=== PATIENT | male | born 1955 | race Caucasian/White ===

== ENCOUNTER 2018-09-08 07:00 | Day surgery (SDC) | payer OTHER ==
[2018-09-08] MEDS ORDERED: Ringers Lactate 1,000 ML IV ONE (07:46)
[2018-09-08] MEDS ORDERED: BUPIVACAINE 0.5% PF 10 ML VIAL ONE (07:55)
[2018-09-08] MEDS ORDERED: PROPOFOL 200 MG/20 ML VIAL IV ONE (08:10)
[2018-09-08] MEDS ORDERED: FENTANYL CITR 100 MCG/2 ML ONE ×2 (08:11→09:11)
[2018-09-08] MEDS ORDERED: MIDAZOLAM HCL 2 MG/2 ML INJ ONE (08:11)
[2018-09-08] MEDS ORDERED: LIDOCAINE 2% MPF 5 ML VIAL ONE (08:11)
[2018-09-08] MEDS ORDERED: ONDANSETRON 4 MG/2 ML VIAL ONE (08:13)
[2018-09-08] MEDS: CEFAZOLIN 1GM (PREMIX IV) 1 GM/50 ML BAG ONE ×2 (08:31→08:41)
--- NOTE | 2018-09-08 09:11 | P.BOP ---
Preoperative diagnosis: Left forearm necrotic ulcer with cellulitis and abscess Postoperative diagnosis: same Primary procedure: Excisional debridement Left forearm necrotic ulcer 8 x 4.5 cm Estimated blood loss: <10cc Specimen: necrotic tissue Findings: as above Anesthesia: General Transferred to: Recovery Room Condition: Good
[2018-09-08] MEDS ORDERED: GLYCOPYRROLATE 0.2 MG/ML SYR ONE ×2 (09:17→09:19)
[2018-09-08] MEDS: MEPERIDINE HCL 50 MG/ML AMP ONE ×4 (09:28→09:45)
[2018-09-08] MEDS: HYDROMORPHONE HCL 1 MG/ML INJ ONE ×2 (09:48→09:58)
[2018-09-08] MEDS ORDERED: CODEINE 30MG/APAP 300MG TAB ONE (10:28)
[2018-09-08 10:31] VITALS: BP 145/81; TEMP 97; O2SAT 97
--- NOTE | 2018-09-08 23:31 | OP ---
Date of Procedure: 09/08/2018 Surgeon: Froilan Escobar MD Preoperative Diagnosis: Left forearm necrotic ulcer with cellulitis and abscess. Postoperative Diagnosis: Left forearm necrotic ulcer with cellulitis and abscess. Procedure: Excisional debridement of left forearm necrotic ulcer 8 x 4.5 cm. Estimated Blood Loss: Less than 10 cc. Specimen: Necrotic tissue. Anesthesia: General plus local. Indications: This is a case of a 63-year-old patient. He claimed that he believes he had an insect bite on left forearm, developed into cellulitis and abscess. He went to a local physician who succes sfully drained that abscess through an I and D but the area got even worse few days later after start ing to improve and developed another area nearby with the abscess too, so the skin over that area loo ks devitalized and necrotic so he came to us for debridement and drainage of an abscess. The benefit s, alternatives, and risks of debridement fully explained which include but are not limited to infect ion, bleeding, damage to adjacent structures, anesthesia complication, nonhealing wound, PA, and even . He also understands this may not relieve any symptoms, he might need more than one surgical intervention. He understood. He will require wound care. He signed a consent. Description Of Procedure: The patient was brought to the operating room, placed in supine position. Anesthesia was done without complication. A time-out was called. Left forearm was prepped and drap ed in a sterile fashion. The area of concern was marked by me and the patient previously in the hold ing room. We proceeded to take a look at the area. We opened the necrotic tissue with a knife. We noticed that the whole area is devitalized and needs to be cleaned. There is tissue there, the bacte irving has used in as a way to preserve itself in that region and leaving that tissue there will just no t improve. So, we proceeded to do debridement of the entire skin all the way down to subcutaneous ti ssue including the previous I and D area. The area was irrigated. The muscle underneath looks intac t. So, we obtained hemostasis, put local anesthetic, irrigated and then covered the area with wet-to -dry dressing. The patient tolerated the procedure well. The patient was sent to recovery in stable condition. DUKE/FRED Voice ID: [id number] Report ID: [id number]
--- NOTE | 2018-09-08 23:34 | DS ---
Date of Discharge: 09/08/2018 Diagnosis: Left forearm necrotic ulcer with cellulitis and abscess. Procedure: Excisional debridement of left forearm necrotic ulcer 8 x 4.5 cm. Disposition: Home. Wound Care: A wet-to-dry dressing with normal saline daily. Medications: Tylenol No. 3 every 4 hours p.r.n. pain. Followup: Follow up in my office in 1 week. DUKE/FRED Voice ID: [id number] Report ID: [id number]
== END 2018-09-08 11:00 | disposition home or self-care (01) ==
LOC: OR 07:00
PROVIDERS: ATTEND Surgery
PROC: 0JBH0ZZ Excision of Left Lower Arm Subcutaneous Tissue and Fascia, Open Approach (ICD-10-PCS; principal; 2018-09-08 08:30)
DX: L98.499 Non-pressure chronic ulcer of skin of other sites with unspecified severity (principal); L03.114 Cellulitis of left upper limb; L02.414 Cutaneous abscess of left upper limb
CPT/HCPCS: 11042; 11045; 88304; J0690; J1170; J2175; J2250; J2405; J2704; J3010 ×2

== ENCOUNTER 2018-12-07 20:49 | Emergency (ER) | payer OTHER ==
[2018-12-07] MEDS ORDERED: ONDANSETRON 4 MG (ODT) TAB ONE (21:20)
[2018-12-07] MEDS ORDERED: HYDROMORPHONE HCL 1 MG/ML INJ ONE (21:20)
[2018-12-07] MEDS ORDERED: KETAMINE HCL 500 MG/5 ML VIAL ONE (21:32)
[2018-12-07] MEDS ORDERED: PROPOFOL 200 MG/20 ML VIAL IV ONE (21:46)
[2018-12-07] MEDS ORDERED: NA CHLORIDE 0.9% 1,000 ML ONE (21:48)
--- NOTE | 2018-12-07 22:25 | RAD REPORT ---
EXAM DESCRIPTION: RAD - Shoulder 1 View - 12/07/2018 9:44 pm CLINICAL HISTORY: PAIN Fall, pain COMPARISON: Shoulder 1 View dated 12/07/2018 FINDINGS: Anterior subcoracoid dislocation the humeral head is noted.
--- NOTE | 2018-12-07 22:29 | ER ---
Nurse's Notes [facility] Name: Hernandez Humphrey Age: 63 yrs Sex: Male : 1955 Arrival Date: 12/07/2018 Time: 20:50 Bed 4 Private MD: Erik Lyons Diagnosis: Unspecified dislocation of left shoulder joint Presentation: 12/07 21:03 Presenting complaint: Patient states: "I tripped over some sound monitors and I think lp1 my shoulder is dislocated"; bony deformity noted to left shoulder; Denies any other injuries. Transition of care: patient was not received from another setting of care. Onset of symptoms was December 07, 2018 at 20:30. Risk Assessment: Do you want to hurt yourself or someone else? Patient reports no desire to harm self or others. Initial Sepsis Screen: Does the patient meet any 2 criteria? No. Patient's initial sepsis screen is negative. Does the patient have a suspected source of infection? No. Patient's initial sepsis screen is negative. Care prior to arrival: None. 21:03 Method Of Arrival: Wheelchair lp1 21:03 Acuity: MOJGAN 2 lp1 Triage Assessment: 21:06 General: Appears uncomfortable, Behavior is appropriate for age. Pain: Complains of lp1 pain in left shoulder. Musculoskeletal: Bony deformity noted of left shoulder. Injury Description: Deformity sustained to left shoulder. Historical: - Allergies: 21:06 No Known Allergies; lp1 - Home Meds: 21:06 None [Active]; lp1 - PMHx: 21:06 Squamous cell carcinoma; lp1 - PSHx: 21:06 Hernia repair; lp1 - Immunization history:: Adult Immunizations up to date. - Social history:: Smoking status: Patient/guardian denies using tobacco. - Ebola Screening: : No symptoms or risks identified at this time. Screenin:06 Abuse screen: Denies threats or abuse. Denies injuries from another. Nutritional lp1 screening: No deficits noted. Tuberculosis screening: No symptoms or risk factors identified. 22:12 Fall Risk IV access (20 points). tl2 Assessment: 21:07 General: Appears in no apparent distress. uncomfortable, Behavior is cooperative, tl2 appropriate for age, anxious. Pain: Complains of pain in left shoulder. Neuro: Level of Consciousness is awake, alert, obeys commands, Oriented to person, place, time, situation. Cardiovascular: Denies chest pain. Respiratory: Airway is patent Respiratory effort is even, unlabored, Respiratory pattern is regular, symmetrical. GI: No signs and/or symptoms were reported involving the gastrointestinal system. : No signs and/or symptoms were reported regarding the genitourinary system. Derm: Skin is pink, warm \\T\\ dry. Musculoskeletal: Circulation, motion, and sensation intact. Injury Description: left shoulder dislocation. 21:30 Reassessment: set up patient for conscious sedation procedure and left shoulder tl2 reduction. See conscious sedation flowsheet for vitals. 22:16 Reassessment: pt is waking up from sedation, removed NRB and placed on nc. maintaining tl2 100% O2. Pt is answering questions and following commands. 22:43 Reassessment: Patient appears in no apparent distress at this time. Patient and/or tl2 family updated on plan of care and expected duration. Pain level reassessed. Patient is alert, oriented x 3, equal unlabored respirations, skin warm/dry/pink. see conscious sedation flowsheet. Pt maintains 98% on RA able to ambulate around room. Pt stable for discharge. Pt and family verbalized understanding of discharge instructions, need for follow up, sling usage and prescription usage. Vital Signs: 21:04 BP 175 / 114; Pulse 77; Resp 18; Temp 97.7(TE); Pulse Ox 100% on R/A; Weight 88.45 kg; lp1 Height 6 ft. 1 in. (185.42 cm); Pain 10/10; 22:17 BP 168 / 92; Pulse 71; Resp 16; Pulse Ox 100% on 3 lpm NC; tl2 22:43 BP 149 / 90; Pulse 70; Resp 18; Pulse Ox 98% on R/A; Pain 1/10; tl2 21:04 Body Mass Index 25.73 (88.45 kg, 185.42 cm) lp1 ED Course: 20:50 Patient arrived in ED. do 20:50 Erik Lyons MD is Private Physician. do 21:03 Gilberto Manuel MD is Attending Physician. rn 21:04 Triage completed. lp1 21:05 Arm band placed on right wrist. lp1 21:30 Consent for conscious sedation explained by staff, explained by physician, signed by tl2 spouse. 21:30 Assist provider with reduction of left shoulder using manipulation, Set up for tl2 procedure. Performed by Scottie DAVIS Immobilized with shoulder immobilizer Patient tolerated well. 21:40 Inserted saline lock: 20 gauge in right antecubital area, using aseptic technique. tl2 placed by LARISA Doe. 21:41 Scottie Jovel PA is PHCP. jr8 21:44 Shoulder 1 View In Process Unspecified. EDMS 22:00 Patient has correct armband on for positive identification. Bed in low position. Call tl2 light in reach. Side rails up X2. Adult w/ patient. 22:14 Sue Franco RN is Primary Nurse. tl2 22:28 Shivam Silva MD is Referral Physician. jr8 22:45 IV discontinued, intact, bleeding controlled, No redness/swelling at site. Pressure tl2 dressing applied. 22:53 Shoulder (1 View) XRAY In Process Unspecified. EDMS Administered Medications: 21:20 Drug: Dilaudid 1 mg Route: IM; Site: right deltoid; tl2 21:30 Follow up: Response: No adverse reaction; Pain is unchanged, physician notified tl2 21:20 Drug: Zofran 4 mg Route: PO; tl2 22:00 Follow up: Response: No adverse reaction tl2 21:40 Drug: Ketamine 80 mg Route: IM; Site: right deltoid; tl2 21:40 Follow up: Response: No adverse reaction; No adverse reaction, pt relaxed and pain is tl2 under control 21:44 Drug: Propofol 100 mg {Note: given in 3 doses over 3 minutes, see flowsheet.} Route: tl2 IVP; Site: right antecubital; 21:47 Follow up: Response: No adverse reaction; Patient is sedated tl2 Outcome: 22:28 Discharge ordered by . jr8 22:45 Discharged to home via wheelchair, with family. tl2 22:45 Condition: stable 22:45 Discharge instructions given to patient, family, Instructed on discharge instructions, follow up and referral plans. medication usage, Demonstrated understanding of instructions, follow-up care, medications, Prescriptions given X 2. 22:47 Patient left the ED. tl2 Signatures: Dispatcher [employer] EDMS Gilberto Manuel MD MD rn Pena, Laura, RN RN lp1 Scottie Jovel PA PA jr8 Felecia Kraus Taylor, RN RN tl2
--- NOTE | 2018-12-07 22:29 | EDPHYS ---
Physician Documentation [facility] Name: Hernandez Humphrey Age: 63 yrs Sex: Male : 1955 Arrival Date: 12/07/2018 Time: 20:50 Bed 4 Private MD: Erik Lyons ED Physician Gilberto Manuel HPI: 12/07 22:17 This 63 yrs old Male presents to ER via Wheelchair with complaints of jr8 Shoulder Injury. 22:17 The patient or guardian complains of decreased range of motion, deformity, pain, jr8 tenderness. left shoulder. Context: The problem was sustained at home, resulted from a fall, The patient experiences decreased range of motion, when attempts to raise arm, The patient notes a deformity, a deltoid step-off. Onset: The symptoms/episode began/occurred acutely, today. Modifying factors: the symptoms are alleviated by nothing. The symptoms are aggravated by movement. Associated signs and symptoms: The patient has no apparent associated signs or symptoms. Severity of symptoms: At their worst the symptoms were moderate, in the emergency department the symptoms are unchanged. The patient has not experienced similar symptoms in the past. The patient has not recently seen a physician. 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 Tripped over it landing on left side. Probable dislocated left shoulder present upon arrival . Historical: - Allergies: 21:06 No Known Allergies; lp1 - Home Meds: 21:06 None [Active]; lp1 - PMHx: 21:06 Squamous cell carcinoma; lp1 - PSHx: 21:06 Hernia repair; lp1 - Immunization history:: Adult Immunizations up to date. - Social history:: Smoking status: Patient/guardian denies using tobacco. - Ebola Screening: : No symptoms or risks identified at this time. ROS: 22:17 Eyes: Negative for injury, pain, redness, and discharge, ENT: Negative for injury, jr8 pain, and discharge, Neck: Negative for injury, pain, and swelling, Cardiovascular: Negative for chest pain, palpitations, and edema, Respiratory: Negative for shortness of breath, cough, wheezing, and pleuritic chest pain, Abdomen/GI: Negative for abdominal pain, nausea, vomiting, diarrhea, and constipation, Back: Negative for injury and pain, Skin: Negative for injury, rash, and discoloration, Neuro: Negative for headache, weakness, numbness, tingling, and seizure. 22:17 MS/extremity: Positive for decreased range of motion, deformity, pain, tenderness, of the left shoulder. Exam: 22:17 Eyes: Pupils equal round and reactive to light, extra-ocular motions intact. Lids and jr8 lashes normal. Conjunctiva and sclera are non-icteric and not injected. Cornea within normal limits. Periorbital areas with no swelling, redness, or edema. ENT: Nares patent. No nasal discharge, no septal abnormalities noted. Tympanic membranes are normal and external auditory canals are clear. Oropharynx with no redness, swelling, or masses, exudates, or evidence of obstruction, uvula midline. Mucous membranes moist. Neck: Trachea midline, no thyromegaly or masses palpated, and no cervical lymphadenopathy. Supple, full range of motion without nuchal rigidity, or vertebral point tenderness. No Meningismus. Cardiovascular: Regular rate and rhythm with a normal S1 and S2. No gallops, murmurs, or rubs. Normal PMI, no JVD. No pulse deficits. Respiratory: Lungs have equal breath sounds bilaterally, clear to auscultation and percussion. No rales, rhonchi or wheezes noted. No increased work of breathing, no retractions or nasal flaring. Abdomen/GI: Soft, non-tender, with normal bowel sounds. No distension or tympany. No guarding or rebound. No evidence of tenderness throughout. Back: No spinal tenderness. No costovertebral tenderness. Full range of motion. Skin: Warm, dry with normal turgor. Normal color with no rashes, no lesions, and no evidence of cellulitis. Neuro: Awake and alert, GCS 15, oriented to person, place, time, and situation. Cranial nerves II-XII grossly intact. Motor strength 5/5 in all extremities. Sensory grossly intact. Cerebellar exam normal. Normal gait. 22:17 Musculoskeletal/extremity: Extremities: grossly normal except: noted in the left shoulder: decreased ROM, pain, tenderness, deltoid step of present with anterior fullness, Circulation is intact in all extremities. Pulses: noted to be 2+ in the right radial artery and left radial artery, Sensation intact. Vital Signs: 21:04 BP 175 / 114; Pulse 77; Resp 18; Temp 97.7(TE); Pulse Ox 100% on R/A; Weight 88.45 kg; lp1 Height 6 ft. 1 in. (185.42 cm); Pain 10/10; 22:17 BP 168 / 92; Pulse 71; Resp 16; Pulse Ox 100% on 3 lpm NC; tl2 22:43 BP 149 / 90; Pulse 70; Resp 18; Pulse Ox 98% on R/A; Pain 1/10; tl2 21:04 Body Mass Index 25.73 (88.45 kg, 185.42 cm) lp1 Procedures: 22:17 Reduction: of the left shoulder, using traction, manipulation, Immobilized with sling, jr8 Patient tolerated well. Post reduction film - reveals normal alignment. Moderate sedation: Pre-procedure assessment: the patient has been NPO 2 hour(s) prior to arrival, ASA physical classification: I - healthy, no underlying organic disease, Airway assessment: able to hyperextend neck, able to maintain airway, can open mouth without difficulty, Mallampati classification of tongue size: II - faucial pillars and soft palate can be visualized, but uvula is masked by the base of the tongue, Monitoring during procedure: equipment monitor phototypesetting, continuous pulse oximetry, nurse at bedside at all times, Medications employed: Ketamine, 80 mg(s), Propofol 100 mg total in titrated effect , Post-procedure assessment: the patient is deeply sedated, Mabry sedation score: 6 - no response, Respiratory status: even and unlabored, a reversal agent was not used. MDM: 21:03 Patient medically screened. rn 22:17 Data reviewed: vital signs, nurses notes, radiologic studies, plain films. Data jr8 interpreted: Pulse oximetry: on room air is 100 %. Interpretation: normal. Counseling: I had a detailed discussion with the patient and/or guardian regarding: the historical points, exam findings, and any diagnostic results supporting the discharge/admit diagnosis, radiology results, the need for outpatient follow up, a orthopedic surgeon, to return to the emergency department if symptoms worsen or persist or if there are any questions or concerns that arise at home. Response to treatment: the patient's symptoms have markedly improved after treatment. 22:26 ED course: Patient feeling much better. Minimal pain currently. Patient will f/u with jrMarlene Silva. Knows to come back if worse. Knows to stay in sling until he sees Dr. Silva . 12/07 21:42 Order name: Shoulder 1 View; Complete Time: 22:29 EDMS 12/07 21:49 Order name: Shoulder (1 View) XRAY fc 12/07 22:05 Order name: IV; Complete Time: 22:08 jr8 Administered Medications: 21:20 Drug: Dilaudid 1 mg Route: IM; Site: right deltoid; tl2 21:30 Follow up: Response: No adverse reaction; Pain is unchanged, physician notified tl2 21:20 Drug: Zofran 4 mg Route: PO; tl2 22:00 Follow up: Response: No adverse reaction tl2 21:40 Drug: Ketamine 80 mg Route: IM; Site: right deltoid; tl2 21:40 Follow up: Response: No adverse reaction; No adverse reaction, pt relaxed and pain is tl2 under control 21:44 Drug: Propofol 100 mg {Note: given in 3 doses over 3 minutes, see flowsheet.} Route: tl2 IVP; Site: right antecubital; 21:47 Follow up: Response: No adverse reaction; Patient is sedated tl2 Disposition: 12/08 01:40 Co-signature as Attending Physician, Gilberto Manuel MD. rn Disposition: 12/07/18 22:28 Discharged to Home. Impression: Unspecified dislocation of left shoulder joint. - Condition is Stable. - Discharge Instructions: Shoulder Dislocation. - Prescriptions for Ibuprofen 800 mg Oral Tablet - take 1 tablet by ORAL route every 12 hours As needed take with food; 20 tablet. Tylenol- Codeine #3 300-30 mg Oral Tablet - take 2 tablets by ORAL route every 6 hours As needed; 20 tablet. Zanaflex 4 mg Oral Tablet - take 1 tablet by ORAL route every 8 hours As needed; 20 tablet. - Medication Reconciliation Form, Thank You Letter, Antibiotic Education, Prescription Opioid Use form. - Follow up: Shivam Silva MD; When: 2 - 3 days; Reason: Recheck today's complaints, Continuance of care, Re-evaluation by your physician. - Problem is new. - Symptoms have improved. Signatures: Dispatcher [employer] EDMS Gilberto Manuel MD MD rn Pena, Laura RN RN lp1 Scottie Jovel PA PA jr8 Sue Franco RN RN tl2 Corrections: (The following items were deleted from the chart) 12/07 21:42 21:38 Shoulder Left 2 View+RAD.RAD.BRZ ordered. EDMS EDMS 22:47 22:28 12/07/2018 22:28 Discharged to Home. Impression: Unspecified dislocation of left tl2 shoulder joint. Condition is Stable. Forms are Medication Reconciliation Form, Thank You Letter, Antibiotic Education, Prescription Opioid Use. Follow up: Dr. Shivam Silva; When: 2 - 3 days; Reason: Recheck today's complaints, Continuance of care, Re-evaluation by your physician. Problem is new. Symptoms have improved. jr8
[2018-12-08 00:59] VITALS: TEMP 97.7
[2018-12-08 01:01] VITALS: BP 149/90; O2SAT 98
--- NOTE | 2018-12-08 08:12 | RAD REPORT ---
EXAM DESCRIPTION: RAD - Shoulder 1 View - 12/07/2018 10:53 pm CLINICAL HISTORY: post reduction Pain, swelling COMPARISON: Shoulder 1 View dated 12/07/2018 FINDINGS: The previously noted subcoracoid dislocation of the humeral head has been reduced. AC join t and glenohumeral joint arthritic changes are present. No fracture appreciated.
== END 2018-12-07 22:47 | disposition home or self-care (01) ==
LOC: ER 20:49
PROC: 0RSKXZZ Reposition Left Shoulder Joint, External Approach (ICD-10-PCS; principal; 2018-12-07)
DX: S43.005A Unspecified dislocation of left shoulder joint, initial encounter (principal); W01.0XXA Fall on same level from slipping, tripping and stumbling without subsequent striking against object, initial encounter; Y93.89 Activity, other specified; Y92.009 Unspecified place in unspecified non-institutional (private) residence as the place of occurrence of the external cause
CPT/HCPCS: 73020 ×2; 23655; J2704; J1170; J7030; 96372; 96374; 99285

== ENCOUNTER 2019-07-29 06:40 | Day surgery (SDC) | payer OTHER ==
--- OUTSIDE RECORDS SUMMARY | 2019-07-29 06:45 | XMS REPORT | Summary of Care ---
:1955 Author Name Torresmarcel Ross Zoë Address Unavailable Unavailable , Care Team Providers Name Role Phone MARKOS Jackson JULIENNE Unavailable Unavailable ONEIDA BRITTON MD, EVERTON CAMARA Unavailable Unavailable LUIGI BRITTON MD, CHARLA Swan Unavailable Unavailable Unavailable Unavailable Unavailable Functional Status Name Dates Details Functional status health issues are not documented Status: Name Dates Details Cognitive status health issues are not documented Status: Problems Name Dates Details Painful orthopaedic hardware (996.78, T84.84XA) Status: Active Medications Name Dates Details traMADol HCl - 50 MG Oral Tablet Take 1 to 2 tablets every 6 hours for pain Quantity: 30 Refills: 0 MARKOS N.P., JULIENNE Start : 14-Apr-2019 Active Allergies and Adverse Reactions Name Dates Details Allergy history not documented Status: Procedures Procedure Dates Details CT Pelvis with [id number] Date: 01-Apr-2019 [U] XRAY PELVIS 1 OR 2 [id number] Date: 06-May-2019 Immunization Name Dates Details Immunizations not documented Social History Name Dates Details Unknown if ever smoked Vital Signs Date Test Result Details No Known Vitals to report Results Date Description Value Details Results not documented Plan of Care Name Dates Details Planned Observations Planned Goals not documented Interventions Provided Labs/Procedures/Imaging[U] XRAY PELVIS 1 OR 2 [id number] [id number]; To Be Done: 06 May 2019 Instructions Name Dates Details Instructions not documented Encounters Appointment; JULIENNE BURROWS NP On: 18-Mar-2019 9:30 Encounter Diagnosis: Problem not documented Appointment; JULIENNE BURROWS NP On: 01-Apr-2019 8:30 Encounter Diagnosis: Problem not documented Appointment; JULIENNE BURROWS NP On: 08-Apr-2019 10:45 Encounter Diagnosis: Problem not documented Appointment; CHUCHO RAM M.D. On: 13-Apr-2019 10:15 Encounter Diagnosis: Problem not documented Appointment; CHARLA MEYERS M.D. On: 21-Apr-2019 8:00 Encounter Diagnosis: Problem not documented Appointment; JULIENNE BURROWS NP On: 06-May-2019 11:15 Encounter Diagnosis: Problem not documented
--- OUTSIDE RECORDS SUMMARY | 2019-07-29 06:45 | XMS REPORT ---
:1955 Author Organization [employer] Care Team Providers Name Role Phone Shivam Silva Provider Role Unavailable Allergies, Adverse Reactions, Alerts Substance Reaction Event Type N.K.D.A. Info Not Available Non Drug Allergy Problems Problem Type Condition Code Onset Dates Condition Status Assessment Joint pain of left hip on movement M25.552 Active Assessment Painful orthopaedic hardware T84.84XA Active Medications Medication Code Code Instructions Start End Status Dosage System Date Date Ibuprofen [facility] 66962893548 800 MG Oral Active TAKE 1 TABLET BY MOUTH EVERY 12 HOURS WITH FOOD NEEDED FOR PAIN DO NOT TAKE ASPIRIN Tizanidine HCl ND 42105916645 4 MG Oral Active TAKE 1 TABLET BY MOUTH EVERY 8 HOURS NEEDED FOR MUSCLE SPASMS MAY MAKE DROWSY Acetaminophen- [facility] 92358812737 300-30 MG Oral Active (Schedule Codeine #3 III Drug) TAKE 2 TABLETS BY MOUTH EVERY 6 HOURS NEEDED FOR PAIN MAY MAKE DROWSY Tramadol HCl ND 47221492277 50 MG Orally January 22, Active 1 tablet every 6 hrs 2018 as needed Results No Known Results Summary Purpose [employer] Submission
--- OUTSIDE RECORDS SUMMARY | 2019-07-29 06:45 | XMS REPORT ---
:1955 Author Organization [employer] Care Team Providers Name Role Phone Shivam Silva Provider Role Unavailable Allergies No Known Allergies Problems No Known Problems Medications No Known Medications Results No Known Results Summary Purpose [employer] Submission
--- OUTSIDE RECORDS SUMMARY | 2019-07-29 06:45 | XMS REPORT ---
:1955 [facility] Address [address] [place] [address] Dr. Collins [address] [place] [id number] Care Team Providers Name Role Phone Unavailable Unavailable Unavailable Problems This patient has no known problems. Allergies, Adverse Reactions, Alerts This patient has no known allergies or adverse reactions. Medications This patient has no known medications. Encounters Start End Encounter Admission Attending Care Care Encounter Date/Time Date/Time Type Type Clinicians Facility Department ID 2019-04-21 2019-04-21 Outpatient [facility] [id number] 10:29:00 10:29:00
[2019-07-29] MEDS ORDERED: Ringers Lactate 1,000 ML IV ONE (07:01)
[2019-07-29] MEDS ORDERED: propofoL 200 MG/20 ML VIAL IV ONE (07:17)
[2019-07-29] MEDS ORDERED: LIDOCAINE 1% MPF 5 ML VIAL ONE (07:18)
[2019-07-29 10:25] VITALS: TEMP 97.9; O2SAT 100
[2019-07-29 10:26] VITALS: BP 140/77
== END 2019-07-29 08:52 | disposition home or self-care (01) ==
LOC: OR 06:40
PROVIDERS: ATTEND Surgery
PROC: 0DBE8ZX Excision of Large Intestine, Via Natural or Artificial Opening Endoscopic, Diagnostic (ICD-10-PCS; principal; 2019-07-29 07:30)
DX: Z12.11 Encounter for screening for malignant neoplasm of colon (principal); D12.6 Benign neoplasm of colon, unspecified; K57.90 Diverticulosis of intestine, part unspecified, without perforation or abscess without bleeding; Z85.038 Personal history of other malignant neoplasm of large intestine
CPT/HCPCS: 88305; J2704; J7120

== ENCOUNTER 2020-08-31 06:43 | Day surgery (SDC) | payer OTHER ==
--- NOTE | 2020-08-25 10:30 | RAD REPORT ---
EXAM DESCRIPTION: RAD - Chest Pa And Lat (2 Views) - 08/25/2020 10:01 am CLINICAL HISTORY: PRE OP Chest pain. COMPARISON: Chest Pa And Lat (2 Views) dated 09/05/2018; Chest Pa And Lat (2 Views) dated 05/13/2018; CHEST SINGLE VIEW dated 05/26/2015 FINDINGS: The lungs are clear. The heart is normal in size. No displaced fractures. IMPRESSION: No acute or concerning finding suspected.
[2020-08-25 13:17] LABS: Absolute Lymphocytes (CBC) 1.5 K/uL (0.7-4.9); Lymphocytes % 21.7 % (15.3-44.8); RBC Red Blood Cell Count 4.44 M/uL (4.33-5.43)
--- NOTE | 2020-08-26 16:10 | EKG ---
Test Date: 2020-08-25 Test Time: 09:32:34 Telephone Interceptor Operator: HEATHER MEASUREMENT RESULTS: Intervals: Rate: 53 UT: 176 QRSD: 88 QT: 434 QTc: 407 [place]: P: 74 UT: 176 QRS: 49 T: 66 INTERPRETIVE STATEMENTS: Sinus bradycardia with occasional premature ventricular complexes and fusion complexes Otherwise normal ECG Compared to ECG 09/05/2018 13:05:39 Fusion complex(es) now present Ventricular premature complex(es) now present Electronically Signed On 08-26-20 16:09:30 SALES FORCE DEVELOPER by Jose Forrest
--- OUTSIDE RECORDS SUMMARY | 2020-08-31 06:47 | XMS REPORT | Continuity of Care Document ---
:1955 Author Organization [facility] t Address [address] [place] [address] Care Team Providers Name Role Phone MARKOS Attending Clinician Unavailable ROUTT Attending Clinician Unavailable ANDRASSY Attending Clinician Unavailable Problems Condition Condition Condition Status Onset Resolution Last Treating Co mments Source Name Details Category Date Date Treatment Clinician Date Painful Painful Problem Active [facility] orthopaedi orthopaedi it y of c hardware c hardware [place] [facility] ans Allergies, Adverse Reactions, Alerts This patient has no known allergies or adverse reactions. Medications Ordered Filled Start Stop Current Ordering Indication Dosage Frequency Signature Comments Components Source Medication Medication Date Date Medication? Clinician (SIG) Name Name traMADol traMADol Yes UJLIENNE Take 1 to [facility] HCl - 50 MG HCl - 50 MG 8-20 MARKOS 2 tablets ity of Oral Tablet Oral Tablet 00:00: N.P. every 6 [place] 00 hours for Physici pain ans Tramadol Tramadol Yes Shivam [address] [facility] HCl HCl 5-30 Silva as needed [facility] Ibuprofen Ibuprofen Yes Shivam TAKE [address] [facility] Silva TABLET BY [facility] - MOUTH Memoria EVERY 12 l HOURS WITH Outpati FOOD ent NEEDED FOR Clinics PAIN DO NOT TAKE ASPIRIN Tizanidine Tizanidine Yes Shivam TAKE [address] [facility] [address] HCl HCl Silva TABLET BY [facility] - MOUTH Memoria EVERY 8 l HOURS Outpati NEEDED FOR ent MUSCLE Clinics SPASMS MAY MAKE DROWSY Acetaminoph Acetaminoph Yes Shivam (Schedule [facility] en-Codeine en-Codeine Silva III Drug) [facility] - #3 #3 TAKE 2 Memoria TABLETS BY l MOUTH Outpati EVERY 6 ent HOURS Clinics NEEDED FOR PAIN MAY MAKE DROWSY Procedures Procedure Date / Time Performed Performing Clinician [facility] e [U] XRAY PELVIS 1 OR 2019-05-06 00:00:00 [facility] 2 [facility] [id number] Pelvis with 3D 2019-04-01 00:00:00 [facility] [id number] Physicians [U] XRAY PELVIS MIN 3 2019-03-30 00:00:00 [facility] [address] Physicians [U] XRAY PELVIS MIN 3 2019-03-18 00:00:00 [facility] [address] Physicians Encounters Start End Encounter Admission Attending Care Care Encounter Source Date/Time Date/Time Type Type Clinicians Facility Department ID 2020-07-26 2020-07-26 Outpatient [facility] [id number] [facility] 2020-05-24 2020-05-24 Outpatient [facility] [id number] [facility] 2019-09-23 2019-09-23 Outpatient [facility] [id number] Memoria 10:54:00 10:54:00 l [facility] 2019-05-06 2019-05-06 AppointSHERI [facility] [id number] Univers 11:15:00 11:15:00 t; MYESHA ROBINS [facility] NP [place] [facility] 2019-04-21 2019-04-21 Outpatient [facility] [id number] [facility] 10:29:00 10:29:00 2019-04-21 2019-04-21 AppointSHERI Sheth UTP [id number] Univers 08:00:00 08:00:00 t; CHARLA MEYERS ity of [place], M.D. [place] M.D. Physici [facility] 2019-04-13 2019-04-13 SHERI Nolen UTP [id number] Univers 10:15:00 10:15:00 t; arnel RANKIN M.D. [place] RICHARD, Physici M.D. [facility] 2019-04-08 2019-04-08 [facility] [id number] Univers 10:45:00 10:45:00 t; MYESHA ROBINS itnicholas of [place], [place] MYESHA ROBINS Physici [facility] 2019-04-01 2019-04-01 Appointmen MARKOS [facility] Orthopedics [id number] Univers 08:30:00 08:30:00 t; MYESHA ROBINS Trauma ity [facility] MYESHA ROBINS [place] [facility] 2019-03-18 2019-03-18 [facility] [id number] Univers 09:30:00 09:30:00 t; MYESHA ROBINS Trauma ity [facility] MYESHA ROBINS [place] [facility] 2019-03-09 2019-03-09 [facility] [id number] 13:01:00 13:01:00 [facility] ent [facility] 2019-02-19 2019-02-19 [facility] [id number] 08:00:00 08:00:00 t [facility] ent [facility] Results Test Description Test Time Test Comments Results Result [facility] e Comments [U] XRAY PELVIS 2019-04-01 Images Universit y of MIN 3 VWS [id number] 08:29:00 acquired, not [place] reported on Physicians this accession number. [U] XRAY PELVIS 2019-03-18 Images Universit y of MIN 3 VWS [id number] 11:33:00 acquired, not [place] reported on Physicians this accession number.
[2020-08-31] MEDS ORDERED: CEFAZOLIN/SWI 1gm 1 GM/10 ML SYR ONE (07:11)
[2020-08-31] MEDS: Ringers Lactate 1,000 ML IV ONE (07:30)
[2020-08-31] MEDS ORDERED: MIDAZOLAM HCL 2 MG/2 ML INJ ONE (07:32)
[2020-08-31] MEDS ORDERED: propofoL 200 MG/20 ML VIAL IV ONE ×2 (07:32→08:05)
[2020-08-31] MEDS ORDERED: LIDOCAINE 1% MPF 5 ML VIAL ONE (07:32)
[2020-08-31] MEDS ORDERED: FENTANYL CITR 100 MCG/2 ML ONE (07:32)
[2020-08-31] MEDS ORDERED: LIDOCAINE 1% MPF 30 ML VIAL ONE (07:36)
--- NOTE | 2020-08-31 08:15 | P.BOP ---
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
[2020-08-31] MEDS ORDERED: KETOROLAC 30 MG/ML INJ ONE (08:16)
[2020-08-31 08:54] VITALS: BP 123/70; TEMP 97; O2SAT 97
[2020-08-31] MEDS ORDERED: CODEINE 30MG/APAP 300MG TAB ONE (09:13)
--- NOTE | 2020-08-31 10:30 | OP ---
Date of Procedure: 08/31/2020 Surgeon: Froilan Escobar MD Preoperative Diagnosis: Right forearm squamous cell carcinoma. Postoperative Diagnosis: Right forearm squamous cell carcinoma. Procedure: Wide excision with frozen section of right forearm squamous cell carcinoma. Specimen: Squamous cell carcinoma with margins free of tumor per Dr. Yun. Anesthesia: MAC plus local. Indications: This is a case of a 65-year-old patient who comes to us with mass with ulceration. Bio psy shows squamous cell carcinoma, and he was scheduled for wide resection with frozen section. The benefits, alternatives, and risks fully explained, which include, but not limited to infection, bleed ing, damage to adjacent structures, anesthesia complication, recurrence, MD, and . He also unde rstands this may not relieve any symptoms. He might need more than one surgical intervention. He is not new to be seen cancer. 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 Benefits, alternative s, and risks of excision right now fully explained which include, but not limited to infection, bleed ing, damage to adjacent structures, anesthesia complication, recurrence, MD, and . The area of concern was marked by me and the patient in the holding room. The patient was brought to the operati ng room, placed supine position, anesthesia was done without complication. Right forearm was prepped and draped in sterile fashion. We proceeded to amita the area in an oval fashion, removed the mass w ith at least 1-1.5 cm margin. The mass was completely excised. a tack for orientation an d sent to the pathologist who confirmed squamous cell carcinoma, margins free of tumor. The area was irrigated. Hemostasis obtained. This was closed with a combination of 3-0 chromic and then 3-0 nyl on. Patient tolerated the procedure well. Patient was sent to recovery in stable condition. Disposition: Home. Activity: As tolerated. No heavy lifting. Followup: Follow up in my office in 1 week. Plan: Call for appointment on [phone]. Keep area dry for 48 hours, then may shower and then may us e Bactroban ointment over that area twice a day. Medications: Tylenol No. 3 q.4 hours p.r.n. pain, Bactrim DS p.o. b.i.d. HM/MODL Voice ID: [id number] Report ID: [id number]
== END 2020-08-31 09:32 | disposition home or self-care (01) ==
LOC: OR 06:43
PROVIDERS: ATTEND Surgery
PROC: 0JBG0ZZ Excision of Right Lower Arm Subcutaneous Tissue and Fascia, Open Approach (ICD-10-PCS; principal; 2020-08-31 07:30)
DX: D04.61 Carcinoma in situ of skin of right upper limb, including shoulder (principal); L57.0 Actinic keratosis; I10 Essential (primary) hypertension; Z20.828 Contact with and (suspected) exposure to other viral communicable diseases
CPT/HCPCS: 11602; 93005; 85025; 80048; 36415; 88331; 88332; 88305; 71046; U0002; J2704; J2250; J3010; J0690; J7120

== ENCOUNTER 2021-03-08 05:56 | Day surgery (SDC) | payer OTHER ==
--- NOTE | 2021-03-02 10:14 | RAD REPORT ---
EXAM DESCRIPTION: RAD - Chest Pa And Lat (2 Views) - 03/02/2021 9:31 am CLINICAL HISTORY: preop, pending shoulder surgery COMPARISON: July 2020 TECHNIQUE: Frontal and lateral views of the chest were obtained. FINDINGS: The lungs are clear. Interstitial pattern matches comparison. Heart size is normal and ce ntral vasculature is within normal limits. No pleural effusion or pneumothorax seen. No acute bony finding noted. No aortic abnormality. IMPRESSION: No acute cardiopulmonary process. No significant change from comparison study.
[2021-03-02 10:16] LABS: Absolute Lymphocytes (CBC) 1.8 K/uL (0.7-4.9); Basophils % 1.3 % (0-1.3); Hematocrit 43.7 % (39.6-49.0); Lymphocytes % 23.1 % (15.3-44.8); MPV 9.2 fL (7.6-11.3); RBC Red Blood Cell Count 4.48 M/uL (4.33-5.43)
[2021-03-02 10:19] LABS: Protime INR 0.94
[2021-03-02 10:26] LABS: Potassium 4.3 mmol/L (3.5-5.1)
--- NOTE | 2021-03-03 07:46 | EKG ---
Test Date: 2021-03-02 Test Time: 08:21:32 Combatant Swimmer: BRAULIO MEASUREMENT RESULTS: Intervals: Rate: 54 VA: 182 QRSD: 94 QT: 442 QTc: 419 [place]: P: 61 VA: 182 QRS: 17 T: 54 INTERPRETIVE STATEMENTS: Sinus bradycardia Otherwise normal ECG Compared to ECG 08/25/2020 09:32:34 Fusion complex(es) no longer present Ventricular premature complex(es) no longer present Electronically Signed On 03-03-21 07:43:02 CDT by Jose Forrest
[2021-03-08] MEDS ORDERED: Ringers Lactate 1,000 ML IV ONE ×2 (06:30→07:44)
[2021-03-08] MEDS ORDERED: CEFAZOLIN/SWI 2gm 2 GM/20 ML SYR ONE (06:31)
[2021-03-08] MEDS ORDERED: NS 0.9% VIAL 10 ML ONE ×2 (06:49→08:38)
[2021-03-08] MEDS ORDERED: LIDOCAINE 1% MPF 5 ML VIAL ONE (06:49)
[2021-03-08] MEDS ORDERED: MIDAZOLAM HCL 2 MG/2 ML INJ ONE (06:50)
[2021-03-08] MEDS ORDERED: dexAMETHasone 10 MG/ML VIAL ONE ×2 (06:50→07:33)
[2021-03-08] MEDS ORDERED: FENTANYL CITR 100 MCG/2 ML ONE (06:50)
[2021-03-08] MEDS ORDERED: ROPLVACAINE HCL 40 ML ONE (06:50)
[2021-03-08] MEDS ORDERED: EPINEPHRINE/PF 1 MG/ML AMP ONE (07:22)
[2021-03-08] MEDS ORDERED: propofoL 200 MG/20 ML VIAL IV ONE (07:33)
[2021-03-08] MEDS ORDERED: LIDOCAINE 2% MPF 5 ML VIAL ONE (07:33)
[2021-03-08] MEDS ORDERED: ONDANSETRON 4 MG/2 ML VIAL ONE (07:33)
[2021-03-08] MEDS ORDERED: ROCURONIUM 50 MG/5 ML VIAL IV ONE (07:33)
[2021-03-08] MEDS ORDERED: KETOROLAC 30 MG/ML INJ ONE (07:33)
[2021-03-08] MEDS ORDERED: EPHEDRINE SULF 50 MG/ML VIAL ONE (08:12)
[2021-03-08] MEDS ORDERED: GLYCOPYRROLATE 0.2 MG/ML SYR ONE (08:27)
[2021-03-08] MEDS ORDERED: VECURONIUM 10 MG/VIAL IV ONE (08:38)
[2021-03-08] MEDS ORDERED: NEOSTIGMINE 1 MG/ML -5 ML ONE (09:27)
--- NOTE | 2021-03-08 09:43 | P.BOP ---
Preoperative diagnosis: left shoulder rotator cuff tear, left shoulder impingement syndrome Postoperative diagnosis: same, left shoulder SLAP tear Primary procedure: left shoulder arthroscopic rotator cuff repair Secondary procedure: left shoulder arthroscopic SLAP debridement Other procedure(s): left shoulder arthroscopic subacromial decompression Flue Lining Dipper: NONE,NONE Estimated blood loss: 5 cc Specimen: none Findings: see dictation Anesthesia: General Complications: None Implants: 1- 5.5 mm Arthrex corkscrew, 1- 4.75 mm Arthrex swivelock Fluids & blood products: per anesthesia record Transferred to: Recovery Room Condition: Good
[2021-03-08] MEDS ORDERED: HYDROCODONE/APAP 7.5/325 MG TAB ONE (10:54)
--- NOTE | 2021-03-08 11:01 | RAD REPORT ---
EXAM DESCRIPTION: RAD - Shoulder 1 View - 03/08/2021 10:06 am CLINICAL HISTORY: s/p L rotator cuff repair subacromial decomp. COMPARISON: Shoulder Left Wo Cont dated 02/13/2021 FINDINGS: Single AP projection of the left shoulder obtained. There is no fracture or dislocation. D egenerative changes are seen along the superior margin of the greater tuberosity and along the unders urface of the acromion. No retained foreign body. Air in the soft tissues would be expected for the s urgical procedure performed. IMPRESSION: Left shoulder postoperative examination showing no suspicious or unexpected finding.
[2021-03-08 11:17] VITALS: BP 121/76; TEMP 97.3; O2SAT 98
--- NOTE | 2021-03-09 08:33 | OP ---
Date of Procedure: 03/08/2021 Surgeon: Shivam Silva MD Preoperative Diagnoses: 1.Left shoulder rotator cuff tear. 2.Left shoulder . Postoperative Diagnoses: 1.Left shoulder rotator cuff tear. 2.Left shoulder . 3.Left shoulder superior labrum anterior and posterior. Procedure: 1.Left shoulder arthroscopic rotator cuff repair. 2.Left shoulder arthroscopic superior labrum anterior and posterior tear debridement. 3.Left shoulder arthroscopic subacromial decompression. Anesthesia: General endotracheal. Fluids: Per Anesthesia record. Estimated Blood Loss: 5 cc. Complications: None. Implants: 1.One 5.5 mm Arthrex corkscrew. 2.One 4.75 mm Arthrex SwiveLock. Indication For Procedure: Hernandez is a 65-year-old male, presented to my clinic with signs, symptoms, a nd MRI findings consistent with a left shoulder rotator cuff tear . The patient failed con servative treatment measures including corticosteroid injections and alternatives . Due to his continued pain, I discussed with the patient at length risks and benefits associated with operat cecelia and nonoperative treatment and he expressed understanding and elected to proceed with operative t reatment. Description Of Procedure: After informed consent was obtained, the patient was identified in the pre operative holding area. The left upper extremity was marked. The patient was then taken to the PACU , where he underwent an interscalene block to his left shoulder performed by Anesthesia. He was then taken back to the , transferred to the operating table in supine fashion and placed under general endotracheal anesthesia. He was then placed in the beach chair position with his extremities well padded. The left upper extremity was then prepped and draped in usual sterile fashion. A time -out was initiated and the correct patient and procedure were confirmed and identified. The patient did receive his preoperative prophylactic antibiotics. A spinal needle was then introduced into the glenohumeral joint via the posterior portal capsule. A stab incision was made using 11 bl keegan to create a posterior portal. Arthroscope was brought in via the posterior portal position. Und er direct visualization, an anterior portal and cannula were created and placed. Diagnostic arthrosc opy was then performed. The patient was noted to have some fraying of the superior labrum consistent with a type 1 SLAP tear, which was debrided using the arthroscopic shaver. The biceps tendon and an chor were found to be in overall good shape without any significant fraying or tenosynovitis noticed. Subscapularis was also found to be intact and stable to probe. The anterior and posteri or labrum was found to be stable to probe. There were no loose bodies within the axillary pouch. Th ere was some mild degenerative changes of the glenohumeral joint. The supraspinatus was then identif ied and there was also noted to be a full-thickness tear to the anterior supraspinatus. The spinal n eedle was brought in via the lateral portal position and a lateral portal was created. The obturator was then brought into the joint, consistent with a full-thickness rotator cuff tear. The arthroscop ic shaver was then used to debride the undersurface of the anterior supraspinatus tear as well as amol ride the greater tuberosity to enhance healing of the repair. The arthroscope was then brought out o f the subacromial space. A subacromial bursectomy was performed. A stab incision and a 5 .5 mm double-loaded anchor was then placed surface. The rotator cuff tear was identified and found to be reducible. The sutures were then passed through the rotator cuff tear in an anterior to posterior fashion tied down for medial row fixation in a horizontal mattress fashion. The sutures were then all brought into 1 lateral row anchor and a 4.75 mm Arthrex SwiveLock was brou ght in for lateral row fixation and overall good reduction of the rotator cuff tear up to the greater tuberosity. Next, attention was taken to the subacromial decompression. Arthroscopic radiofrequenc y ablator was then used to debride the undersurface of the acromion. An arthroscopic lashell was then u sed to perform an acromioplasty and any spurs off the undersurface of the acromion. There was good o verall space and no obvious impingement noted with the range of motion of the shoulder. Arthroscopic instruments were then removed without complications. The wounds were then irrigated thoroughly with normal saline. Subcutaneous tissue was approximated using a 2-0 Vicryl. Skin was approximated usin g 3-0 Monocryl. Sterile dressings were applied. The patient was placed in a shoulder immobilizer an d taken to PACU in stable condition. Postoperative Plan: He will follow up in clinic in 1 week for wound check and dressing change. He w ill begin physical therapy for medium rotator cuff repair protocol at 4 weeks postop. AVA/FRED Voice ID: [id number] Report ID: [id number]
== END 2021-03-08 11:20 | disposition home or self-care (01) ==
LOC: OR 05:56
PROVIDERS: ATTEND Orthopaedic Surgery Sports Medicine
PROC: 0RHK44Z Insertion of Internal Fixation Device into Left Shoulder Joint, Percutaneous Endoscopic Approach (ICD-10-PCS; 2021-03-08)
PROC: 0RNK4ZZ Release Left Shoulder Joint, Percutaneous Endoscopic Approach (ICD-10-PCS; 2021-03-08)
PROC: 0RBK4ZZ Excision of Left Shoulder Joint, Percutaneous Endoscopic Approach (ICD-10-PCS; 2021-03-08)
PROC: 0LM24ZZ Reattachment of Left Shoulder Tendon, Percutaneous Endoscopic Approach (ICD-10-PCS; principal; 2021-03-08 07:30)
DX: S46.012A Strain of muscle(s) and tendon(s) of the rotator cuff of left shoulder, initial encounter (principal); M75.42 Impingement syndrome of left shoulder; M75.22 Bicipital tendinitis, left shoulder; M25.512 Pain in left shoulder; Z20.822 Contact with and (suspected) exposure to COVID-19
CPT/HCPCS: 93005; 85025; 80048; 36415; 85610; 85730; 71046; 73020; 29827; 29826; 29822; U0002; J2704; J0171; J2250; J3010; J1100 ×2; J2795; J2710; J0690; J7120 ×2; J2405

== ENCOUNTER 2022-04-03 16:52 | Inpatient (IN) | payer OTHER ==
--- OUTSIDE RECORDS SUMMARY | 2022-04-03 16:55 | XMS REPORT | Continuity of Care Document ---
:1955 Author Organization [facility] t Address [address] [place] [address] [address] [place] [address] Care Team Providers Name Role Phone Michael Ramirez Attending Clinician Unavailable Erik Lyons Attending Clinician Unavailable JULIENNE BURROWS NP Attending Clinician Unavailable CHARLA MEYERS M.D. Attending Clinician Unavailable CHUCHO RAM M.D. Attending Clinician Unavailable Problems Condition Condition Condition Status Onset Resolution Last Treating Co mments Source Name Details Category Date Date Treatment Clinician Date Painful Painful Problem Active [facility] orthopaedi orthopaedi Ph ysici c hardware c hardware an s Allergies, Adverse Reactions, Alerts This patient has no known allergies or adverse reactions. Medications Ordered Filled Start Stop Current Ordering Indication Dosage Frequency Signature Comments Components Source Medication Medication Date Date Medication? Clinician (SIG) Name Name traMADol traMADol Yes JULIENNE Take 1 to [facility] HCl - 50 MG HCl - 50 MG 8-20 MARKOS 2 tablets Physici Oral Tablet Oral Tablet 00:00: N.P. every 6 ans 00 hours for pain Tramadol Tramadol Yes Shivam 1 tablet [facility] HCl HCl 5-30 Silva as needed Spirit 00:00: - [facility] 00 [facility] Ibuprofen Ibuprofen Yes Shivam TAKE 1 [facility] Silva TABLET BY Spirit MOUTH - [facility] EVERY [address] [facility] HOURS WITH [facility] FOOD Medical NEEDED FOR Center PAIN DO NOT TAKE ASPIRIN Tizanidine Tizanidine Yes Shivam TAKE 1 Common HCl HCl Silva TABLET BY Spirit MOUTH - [facility]I EVERY [facility] HOURS [facility] NEEDED FOR Medical MUSCLE Center SPASMS MAY MAKE DROWSY Acetaminoph Acetaminoph Yes Shivam (Schedule Common en-Codeine en-Codeine Silva III Drug) Spirit #3 #3 TAKE 2 - CHI TABLETS BY [facility] EVERY 6 Medical HOURS Center NEEDED FOR PAIN MAY MAKE DROWSY Procedures Procedure Date / Time Performed Performing Clinician [facility] e [U] XRAY PELVIS 1 OR 2 [facility] 2019-05-06 00:00:00 [facility] [id number] [facility] Pelvis with 3D [id number] 2019-04-01 00:00:00 [facility] [U] XRAY PELVIS MIN 3 [facility] 2019-03-30 00:00:00 [facility] [id number] [U] XRAY PELVIS MIN 3 [facility] 2019-03-18 00:00:00 [facility] [id number] Encounters Start End Encounter Admission Attending Care Care Encounter Source Date/Time Date/Time Type Type Clinicians Facility Department ID 2021-11-23 Outpatient Ramirez, STLMLC STLMLC [id number] Common 14:09:01 [facility] 2021-11-22 Outpatient Ramirez, STLMLC STLMLC [id number] Common 08:44:00 [facility] 10463 [facility] 2021-09-20 Outpatient Ramirez, STLMLC STLMLC [id number] Common 13:25:23 Michael 50143 [facility] 2021-09-20 Outpatient Ramirez, STLMLC STLMLC [id number] Common 13:21:36 Michael 62603 [facility] 2021-09-20 Outpatient [place], STLMLC STLMLC [id number] Common 13:18:39 Erik [id number] [facility] 2021-09-20 Outpatient [place], STLMLC STLMLC [id number] Common 11:45:58 Erik [id number] [facility] 2022-03-07 2022-03-07 ambulatory STLMLC STLMLC [id number] Common 00:00:00 00:00:00 [facility] 2021-12-25 2021-12-25 ambulatory STLMLC STLMLC [id number] Common 00:00:00 00:00:00 [facility] 2021-11-23 2021-11-23 ambulatory STLMLC STLMLC [id number] Common 00:00:00 00:00:00 [facility] 2021-06-12 2021-06-12 Outpatient STLMLC STLMLC [id number] Common 00:00:00 00:00:00 [facility] 2021-04-27 2021-04-27 Outpatient STLMLC STLMLC [id number] Common 00:00:00 00:00:00 [facility] 2021-04-27 2021-04-27 Outpatient STLMLC STLMLC [id number] Common 00:00:00 00:00:00 [facility] 2021-03-27 2021-03-27 Outpatient STLMLC STLMLC [id number] Common 00:00:00 00:00:00 [facility] 2021-03-24 2021-03-24 Outpatient STLMLC STLMLC [id number] Common 00:00:00 00:00:00 [facility] 2021-03-13 2021-03-13 Outpatient STLMLC STLMLC [id number] Common 00:00:00 00:00:00 [facility] 2021-03-06 2021-03-06 Outpatient STLMLC STLMLC [id number] Common 00:00:00 00:00:00 [facility] 2021-02-22 2021-02-22 Outpatient STLMLC STLMLC [id number] Common 00:00:00 00:00:00 [facility] 2021-02-13 2021-02-13 Outpatient STLMLC STLMLC [id number] Common 00:00:00 00:00:00 [facility] 2021-01-31 2021-01-31 Outpatient STLMLC STLMLC [id number] Common 00:00:00 00:00:00 [facility] 2021-01-30 2021-01-30 Outpatient STLMLC STLMLC [id number] Common 00:00:00 00:00:00 [facility] 2020-07-26 2020-07-26 Outpatient STLMLC STLMLC [id number] Common 00:00:00 00:00:00 [facility] 2020-05-24 2020-05-[address] [facility] [id number] Common 00:00:00 00:00:00 [facility] 2019-09-23 2019-09-23 Outpatient [facility] 7501 [facility] 10:54:00 10:54:00 l [facility] 2019-05-06 2019-05-06 Jonnie BURROWS [facility] [place]opedics [id number] [place] 11:15:00 11:15:00 t; MYESHA ROBINS [facility] MYESHA ROBINS [facility] 2019-04-21 2019-04-21 Outpatient [facility] [id number] [facility] 10:29:00 10:29:00 2019-04-21 2019-04-21 Jonnie MEYERS [facility] [id number] 7 [place] 08:00:00 08:00:00 t; CHARLA MEYERS Phys ici [place], M.D. ans M.D. 2019-04-13 2019-04-13 [facility] [id number] 252 [place] 10:15:00 10:15:00 t; Aryan RANKIN M.D. ans RICHARD, M.D. 2019-04-08 2019-04-08 Jonnie [facility] [id number] [place] 10:45:00 10:45:00 t; MYESHA ROBINS Physic i charisse BURROWS NP 2019-04-01 2019-04-01 Jonnie BURROWS [facility] Orthopedics [id number] [place] 08:30:00 08:30:00 t; MYESHA ROBINS Trauma Physic i MARKOS [facility] - ans MYESHA ROBINS [facility] 2019-03-18 2019-03-18 Jonnie BURROWS [facility] Orthopedics [id number] [place] 09:30:00 09:30:00 t; MYESHA ROBINS Trauma Physic i MARKOS [facility] - ans MYESHA ORBINS [facility] 2019-03-09 2019-03-09 [facility] [id number] Common 13:01:00 13:01:00 t [facility] 2019-02-19 2019-02-19 [facility] [id number] Common 08:00:00 08:00:00 t [facility] Results Test Description Test Time Test Comments Results Result Sour e Comments [U] XRAY PELVIS 2019-04-01 Images [facility] Physic ians MIN 3 VWS [id number] 08:29:00 acquired, not reported on this accession number. [U] XRAY PELVIS 2019-03-18 Images [facility] Physic ians MIN 3 VWS [id number] 11:33:00 acquired, not reported on this accession number.
[2022-04-03 18:15] LABS: Absolute Lymphocytes (CBC) 2.2 K/uL (0.7-4.9); Hematocrit 45.1 % (39.6-49.0); Lymphocytes % 23.7 % (15.3-44.8); MCV 95.7 fL (80-100); MPV 8.8 fL (7.6-11.3); RBC Red Blood Cell Count 4.72 M/uL (4.33-5.43)
[2022-04-03] MEDS ORDERED: NA CHLORIDE 0.9% 1,000 ML ONE ×2 (18:15→23:10)
[2022-04-03] MEDS ORDERED: MORPHINE 4 MG/ML SYR ONE (18:15)
[2022-04-03] MEDS ORDERED: ONDANSETRON 4 MG/2 ML VIAL ONE ×2 (18:15→20:38)
[2022-04-03 18:36] LABS: Albumin 3.9 g/dL (3.4-5.0); Bilirubin Total 0.4 mg/dL (0.2-1.0); Potassium 3.9 mmol/L (3.5-5.1); Protein, Total 7.7 g/dL (6.4-8.2)
--- NOTE | 2022-04-03 18:47 | RAD REPORT ---
EXAM DESCRIPTION: RAD - Chest Single View - 04/03/2022 6:27 pm CLINICAL HISTORY: upper abdomen pain Chest pain. COMPARISON: Chest Pa And Lat (2 Views) dated 03/02/2021; Chest Pa And Lat (2 Views) dated 08/25/2020; Chest Pa And Lat (2 Views) dated 09/05/2018; Chest Pa And Lat (2 Views) dated 05/13/2018 FINDINGS: Portable technique limits examination quality. The lungs are grossly clear. The heart is normal in size. No displaced fractures. IMPRESSION: No acute intrathoracic process suspected.
[2022-04-03] MEDS ORDERED: HYDROMORPHONE HCL 1 MG/ML INJ ONE ×3 (18:49→23:10)
--- NOTE | 2022-04-03 19:30 | RAD REPORT ---
EXAM DESCRIPTION: CTAbdomen Pelvis W Contrast - 04/03/2022 7:10 pm CLINICAL HISTORY: Abdominal pain. upper abdomen pain COMPARISON: No comparisons TECHNIQUE: Biphasic CT imaging of the abdomen and pelvis was performed with 100 ml non-ionic IV cont rast. All CT scans are performed using dose optimization technique as appropriate and may include automated exposure control or mA/KV adjustment according to patient size. FINDINGS: The lung bases are clear. The liver, spleen, adrenal glands and kidneys are within normal limits. Benign bilateral renal cysts. Calcifications are present throughout the pancreas with [id number] surrounding inflammation co mpatible with chronic pancreatitis with acute pancreatitis likely superimposed. No bowel obstruction, free air, free fluid or abscess. Postsurgical clips are present in the left ing uinal region. The appendix is normal. No evidence of significant lymphadenopathy. Mild lumbar degenerative changes. IMPRESSION: Acute on chronic pancreatitis is present. No pseudocyst, abscess or pancreatic necrosis seen.
--- NOTE | 2022-04-03 19:47 | EDPHYS ---
Physician Documentation [facility] Name: Hernandez Humphrey Age: 67 yrs Sex: Male : 1955 Arrival Date: 04/03/2022 Time: 16:55 Bed 23 Private MD: Kobe Ramirez C ED Physician George Key HPI: 04/03 17:40 This 67 yrs old Male presents to ER via Ambulatory with complaints of Abdominal Pain, cp Vomiting/Diarrhea. 17:40 The patient presents with abdominal pain in the upper abdomen. Onset: The cp symptoms/episode began/occurred 1 week(s) ago. The symptoms radiate to back. Associated signs and symptoms: Pertinent positives: nausea, Pertinent negatives: chest pain, constipation, diarrhea, dysuria, fever, hematuria, shortness of breath, testicular pain, vomiting. The symptoms are described as waxing/waning. Severity of pain: in the emergency department the pain is actually worse moderately. 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 - Social history:: Smoking status: Patient/guardian denies using tobacco, the patient reports quitting approximately 30 years ago. ROS: 17:45 Constitutional: Negative for body aches, chills, fever, poor PO intake. cp 17:45 Eyes: Negative for injury, pain, redness, and discharge. cp 17:45 ENT: Negative for drainage from ear(s), ear pain, sore throat, difficulty swallowing, cp difficulty handling secretions. 17:45 Cardiovascular: Negative for chest pain, edema, palpitations. 17:45 Respiratory: Negative for cough, shortness of breath, wheezing. 17:45 Abdomen/GI: Positive for abdominal pain, nausea, Negative for vomiting, diarrhea. 17:45 Back: Positive for radiated pain. 17:45 : Negative for urinary symptoms. 17:45 Neuro: Negative for dizziness, headache, weakness. 17:45 All other systems are negative. Exam: 17:50 Constitutional: The patient appears in no acute distress, alert, awake, cp non-diaphoretic, non-toxic, well developed, well nourished, uncomfortable. 17:50 Head/Face: Normocephalic, atraumatic. cp 17:50 Eyes: Periorbital structures: appear normal, Conjunctiva: normal, no exudate, no injection, Sclera: no appreciated abnormality, Lids and lashes: appear normal, bilaterally. 17:50 ENT: External ear(s): are unremarkable, Nose: is normal, Mouth: Lips: moist, Oral mucosa: moist, Posterior pharynx: Airway: no evidence of obstruction, patent. 17:50 Neck: ROM/movement: is normal, is supple, without pain, no range of motions limitations. 17:50 Chest/axilla: Inspection: normal, Palpation: is normal, no crepitus, no tenderness. 17:50 Cardiovascular: Rate: bradycardic, Rhythm: regular, Edema: is not appreciated, JVD: is not appreciated. 17:50 Respiratory: the patient does not display signs of respiratory distress, Respirations: normal, no use of accessory muscles, no retractions, labored breathing, is not present, Breath sounds: are clear throughout, no decreased breath sounds, no stridor, no wheezing. 17:50 Abdomen/GI: Inspection: abdomen appears normal, Bowel sounds: active, all quadrants, Palpation: soft, in all quadrants, severe abdominal tenderness, in the epigastric area, voluntary guarding, is elicited in the epigastric area. 17:50 Back: CVA tenderness, is absent. 17:50 Skin: no rash present. 17:50 Neuro: Orientation: to person, place \T\ time. Mentation: is normal, Motor: moves all fours, strength is normal, Sensation: is normal. 18:13 ECG was reviewed by the Attending Physician. cp Vital Signs: 17:31 BP 179 / 93; Pulse 50; Resp 18; Temp 97.2; Pulse Ox 99% on R/A; kr3 18:43 BP 166 / 83; Pulse 50; Resp 17; Pulse Ox 100% on R/A; ll1 19:37 BP 165 / 85; Pulse 56; Resp 16; Pulse Ox 100% on R/A; eh3 MDM: 17:25 Patient medically screened. bonnie 18:00 Differential diagnosis: AAA, acute coronary syndrome, bowel obstruction, cholecystitis, cp Cholelithiasis, pancreatitis, Peptic Ulcer Disease, Perf. Duodenal Ulcer, Perf. Gastric Ulcer, Ureterolithiasis, urinary tract infection. 19:54 Data reviewed: vital signs, nurses notes, lab test result(s), EKG, radiologic studies, cp CT scan, plain films. Physician consultation: Rey Sood MD was called at 19:55, regarding consult, patient's condition, left message on voicemail. 04/03 17:35 Order name: CBC with Diff; Complete Time: 18:41 cp 04/03 18:41 Interpretation: Normal except: EOSINOPHIL % 8.2. cp 04/03 17:35 Order name: CMP; Complete Time: 18:41 cp 04/03 18:41 Interpretation: Normal except: GFR 69. cp 04/03 17:35 Order name: Lipase; Complete Time: 18:41 cp 04/03 18:41 Interpretation: Abnormal: LIP 8678. cp 04/03 17:35 Order name: Urine Microscopic Only cp 04/03 17:45 Order name: Troponin High Sensitivity; Complete Time: 18:41 04/03 20:25 Order name: Urine Dipstick-Ancillary; Complete Time: 20:45 EDAL 04/03 17:45 Order name: CT Abd/Pelvis - IV Contrast Only; Complete Time: 19:41 cp 04/03 17:45 Order name: XRAY Chest (1 view); Complete Time: 19:41 04/03 19:47 Interpretation: Report review. 04/03 20:45 Order name: SARS RAPID 04/04 02:55 Order name: CBC with Automated Diff EDAL 04/04 03:11 Order name: Comprehensive Metabolic Panel EDAL 04/04 03:11 Order name: Magnesium EDAL 04/04 03:11 Order name: Lipase EDAL 04/04 09:06 Order name: Lipid Profile EDAL 04/03 17:35 Order name: IV Saline Lock; Complete Time: 18:11 cp 04/03 17:35 Order name: Labs collected and sent; Complete Time: 18:11 cp 04/03 17:45 Order name: EKG; Complete Time: 17:46 cp 04/03 17:45 Order name: EKG - Nurse/Tech; Complete Time: 18:10 cp EC:13 Rate is 46 beats/min. Rhythm is regular. [place] interval is normal. QRS interval is normal. cp QT interval is normal. T waves are Inverted in lead aVR. Interpreted by me. Reviewed by me. Administered Medications: 16:20 Drug: NS 0.9% 1000 ml Route: IV; Rate: 1 bolus; Site: left antecubital; kr3 18:10 Drug: Zofran (Ondansetron) 4 mg Route: IVP; Site: left antecubital; kr3 19:08 Follow up: Response: No adverse reaction kr3 18:15 Drug: morphine 4 mg Route: IVP; Infused Over: 4 mins; Site: left antecubital; kr3 19:07 Follow up: Response: No adverse reaction; RASS: Alert and Calm (0) kr3 18:41 CANCELLED (Physician Discretion): Dilaudid (HYDROmorphone) 1 mg IVP once cp 18:48 Drug: HYDROmorphone 1 mg Route: IVP; Site: left antecubital; kr3 20:37 Drug: HYDROmorphone 1 mg Route: IVP; Site: right antecubital; eh3 20:37 Drug: Zofran (Ondansetron) 4 mg Route: IVP; Site: right antecubital; eh3 Disposition Summary: 04/03/22 19:46 Hospitalization Ordered Hospitalization Status: Inpatient Admission cp Provider: Kobe Ramirez cp Condition: Stable cp Problem: new cp Symptoms: have improved cp Bed/Room Type: Standard cp Location: Telemetry/MedSurg (Inpatient)(04/04/22 11:24) iw Room Assignment: 229(04/04/22 11:24) iw Diagnosis - Acute pancreatitis with uninfected necrosis, unspecified cp Forms: - Medication Reconciliation Form cp - SBAR form cp Addendum: 04/07/2022 18:45 Co-signature as Attending Physician, George Key MD I agree with the assessment and c white plan of care. Signatures: Dispatcher [employer] Yadi Dupree, BETH-C MECHANICAL TECHNICIAN-Kelb George Key MD MD cha Williams, Irene, RN RN George Gamboa PA PA cp Garcia, Cindy, RN RN Erma Allen RN RN 3 Tamy Beth RN RN kr3 Corrections: (The following items were deleted from the chart) 04/03 18:41 18:40 Dilaudid (HYDROmorphone) 1 mg IVP once ordered. cp cp 20:59 19:46 Telemetry/MedSurg (observation) cp cg 19:46 cp cg 04/04 11:24 04/03 20:59 BR ER [facility] iw 04/04 11:04/03 [facility] [address] [facility]
--- NOTE | 2022-04-03 19:47 | ER ---
Nurse's Notes [facility] Name: Hernandez Humphrey Age: 67 yrs Sex: Male : 1955 Arrival Date: 04/03/2022 Time: 16:55 Bed 23 Private MD: Kobe Ramirez C Diagnosis: Acute pancreatitis with uninfected necrosis, unspecified Presentation: 04/03 17:31 Chief complaint: Patient states: abd pain x 2 weeks becoming unbearable today, nausea kr3 started today as well. Coronavirus screen: Vaccine status: Patient reports being unvaccinated. Client denies travel out of the [place] in the last 14 days. Ebola Screen: Patient denies travel to an Ebola-affected area in the 21 days before illness onset. Initial Sepsis Screen: Does the patient meet any 2 criteria? No. Patient's initial sepsis screen is negative. Does the patient have a suspected source of infection? Yes: Acute abdominal pain. Risk Assessment: Do you want to hurt yourself or someone else? Patient reports no desire to harm self or others. Onset of symptoms was March 20, 2022. 17:31 Method Of Arrival: Ambulatory kr3 17:31 Acuity: MOJGAN 3 kr3 Triage Assessment: 17:39 General: Appears distressed, uncomfortable, Behavior is calm, cooperative, appropriate kr3 for age. Pain: Complains of pain in epigastric area, right upper quadrant and left upper quadrant Pain currently is 7 out of 10 on a pain scale. GI: Reports upper abdominal pain, diarrhea. 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 - Social history:: Smoking status: Patient/guardian denies using tobacco, the patient reports quitting approximately 30 years ago. Screenin:44 Abuse screen: Denies threats or abuse. Nutritional screening: No deficits noted. ll1 Tuberculosis screening: No symptoms or risk factors identified. Fall Risk IV access (20 points). Total Alves Fall Scale indicates No Risk (0-24 pts). Assessment: 18:43 Reassessment: No changes from previously documented assessment. Patient and/or family ll1 updated on plan of care and expected duration. Pain level reassessed. Patient is alert, oriented x 3, equal unlabored respirations, skin warm/dry/pink. 22:46 GI: eh3 04/04 10:34 GI: Abd is soft. ap3 Vital Signs: 04/03 17:31 BP 179 / 93; Pulse 50; Resp 18; Temp 97.2; Pulse Ox 99% on R/A; kr3 18:43 BP 166 / 83; Pulse 50; Resp 17; Pulse Ox 100% on R/A; ll1 19:37 BP 165 / 85; Pulse 56; Resp 16; Pulse Ox 100% on R/A; eh3 ED Course: 16:55 Patient arrived in ED. mr 16:56 Kobe Ramirez MD is Private Physician. mr 17:06 [facility]ulton [facility]. cp 17:06 George Key MD is Attending Physician. cp 17:23 Tamy Beth, RN is Primary Nurse. kr3 17:26 Arm band placed on Patient placed in an exam room, on a stretcher. ll1 17:37 Triage completed. kr3 17:50 Missed attempt(s): 22 gauge in right antecubital area. kr3 17:55 Inserted saline lock: 22 gauge in left antecubital area, using aseptic technique. Blood kr3 collected. 18:28 XRAY Chest (1 view) In Process Unspecified. EDMS 18:44 Patient has correct armband on for positive identification. Bed in low position. Call ll1 light in reach. Side rails up X 1. Pulse ox on. NIBP on. 19:12 CT Abd/Pelvis - IV Contrast Only In Process Unspecified. EDMS 19:39 Primary Nurse role handed off by Tamy Beth, RN eh3 19:39 Erma Allen, LARISA is Primary Nurse. eh3 19:45 Kobe Ramirez MD is Hospitalizing Provider. cp 21:29 SARS RAPID Sent. eh3 04/04 10:34 No provider procedures requiring assistance completed. Patient admitted, IV remains in ap3 place. Administered Medications: 04/03 16:20 Drug: NS 0.9% 1000 ml Route: IV; Rate: 1 bolus; Site: left antecubital; kr3 18:10 Drug: Zofran (Ondansetron) 4 mg Route: IVP; Site: left antecubital; kr3 19:08 Follow up: Response: No adverse reaction kr3 18:15 Drug: morphine 4 mg Route: IVP; Infused Over: 4 mins; Site: left antecubital; kr3 19:07 Follow up: Response: No adverse reaction; RASS: Alert and Calm (0) kr3 18:41 CANCELLED (Physician Discretion): Dilaudid (HYDROmorphone) 1 mg IVP once cp 18:48 Drug: HYDROmorphone 1 mg Route: IVP; Site: left antecubital; kr3 20:37 Drug: HYDROmorphone 1 mg Route: IVP; Site: right antecubital; eh3 20:37 Drug: Zofran (Ondansetron) 4 mg Route: IVP; Site: right antecubital; eh3 Medication: 18:44 VIS not applicable for this client. ll1 Outcome: 19:46 Decision to Hospitalize by Provider. cp 04/04 10:34 Admitted to ER Hold. Please see [facility] for further documentation. ap3 Condition: good Instructed on the need for admit. 12:27 Patient left the ED. tw2 Signatures: Dispatcher [employer] EDMS Rachael Harris mr George Fulton, RYAN PA cp Mimi Cook RN RN tw2 Sharon Beltre RN RN ap3 Blake Blanton RN RN ll1 Erma Allen, LARISA RN eh3 Tamy Beth, LARISA RN kr3 Corrections: (The following items were deleted from the chart) 04/03 18:27 18:27 Missed attempt(s): 22 gauge in right antecubital area. kr3 kr3 18:28 18:01 Missed attempt(s): 22 gauge in right antecubital area. kr3 kr3 18:28 18:04 Inserted saline lock: 22 gauge in left antecubital area, using aseptic technique. kr3 Blood collected. kr3
[2022-04-03 20:24] LABS: Urine Blood Trace-intact (Negative); Urine Glucose Negative (Negative); Urine Protein Negative (Negative); Urine pH 5.5 (5.0-7.0)
[2022-04-03 21:51] LABS: SARS-CoV-2 Antigen Rapid Res Negative (Negative)
[2022-04-03] MEDS: NA CHLORIDE 0.9% 1,000 ML IV SCH (22:58)
[2022-04-03] MEDS: HYDROMORPHONE HCL 1 MG/ML INJ IV PRN (23:17)
[2022-04-04] MEDS ORDERED: HYDROMORPHONE HCL 1 MG/ML INJ ONE ×3 (02:13→10:55)
[2022-04-04] MEDS: HYDROMORPHONE HCL 1 MG/ML INJ IV PRN ×5 (02:19→18:31)
[2022-04-04 02:50] LABS: Absolute Lymphocytes (CBC) 1.7 K/uL (0.7-4.9); Hematocrit 40.1 % (39.6-49.0); Lymphocytes % 18.8 % (15.3-44.8); MPV 8.6 fL (7.6-11.3); RBC Red Blood Cell Count 4.22 M/uL (4.33-5.43)
[2022-04-04 03:10] LABS: Albumin 3.2 g/dL (3.4-5.0); Bilirubin Total 0.5 mg/dL (0.2-1.0); Magnesium 1.9 mg/dL (1.8-2.4); Potassium 3.6 mmol/L (3.5-5.1); Protein, Total 6.5 g/dL (6.4-8.2)
[2022-04-04] MEDS ORDERED: NA CHLORIDE 0.9% 1,000 ML ONE (06:26)
[2022-04-04] MEDS: ONDANSETRON 4 MG/2 ML VIAL IV PRN ×4 (06:43→18:31)
[2022-04-04] MEDS ORDERED: ONDANSETRON 4 MG/2 ML VIAL ONE ×2 (06:45→10:55)
[2022-04-04] MEDS ORDERED: clonazePAM 1 MG TAB PO PRN (07:16)
[2022-04-04] MEDS ORDERED: ENOXAPARIN 40 MG/0.4 ML SQ ONE (07:47)
--- NOTE | 2022-04-04 07:54 | EKG ---
Test Date: 2022-04-03 Test Time: 18:11:49 Glass Cylinder Flanger: TRACY MEASUREMENT RESULTS: Intervals: Rate: 46 NC: 180 QRSD: 94 QT: 454 QTc: 397 Tucker: P: 64 NC: 180 QRS: 33 T: 60 INTERPRETIVE STATEMENTS: Marked sinus bradycardia Abnormal ECG Compared to ECG 03/02/2021 08:21:32 No significant changes Electronically Signed On 04-04-22 07:52:31 CDT by Jose Forrest
[2022-04-04] MEDS ORDERED: PNEUMOCOCCAL VACCINE 0.5 ML IMVAC ONE (08:00)
[2022-04-04] MEDS: NA CHLORIDE 0.9% 1,000 ML IV SCH ×2 (08:14→18:28)
[2022-04-04] MEDS: ENOXAPARIN 40 MG/0.4 ML SQ SCH (08:15)
--- NOTE | 2022-04-04 10:49 | HP ---
Date of Admission: 04/03/2022 Chief Complaint: Abdominal pain and nausea. History Of Present Illness: This is a 67 year-old male patient, who came into emergency room with almost 2 weeks' history of increasing abdominal pain in upper mid abdomen associated with nausea, but no fever, no vomiting. With worsening symptoms, he came into emergency room. After he was evaluated in the ER, he was diagnosed as having acute on chronic pancreatitis on basis of his CAT scan and blood tests, and he was admitted to the hospital. I saw him in emergency room. His was present with him at bedside. Allergies: NO KNOWN ALLERGIES. Medications: According to office list; he is taking atorvastatin 20 mg daily at bedtime, clonazepam 1 mg 2 times a day as needed for anxiety, escitalopram 20 mg 2 times a day, propranolol 10 mg 2 times a day, trazodone 50 mg at bedtime. Review of Systems: GI: As mentioned above. All other systems reviewed and negative. Past Medical History: Significant for squamous cell carcinoma of mandible diagnosed and treated in 1990, hyperlipidemia, palpitation, diverticulosis, kidney stone, renal cyst, anxiety, insomnia, benign prostatic hypertrophy. Past Surgical History: Significant for hernia repair which was umbilical and inguinal hernia in 2017, shoulder surgery, surgery for fracture of ilium, and surgery for removal of squamous cell carcinoma from mandible 1990. Family History: Father , had cerebral aneurysm. Mother , had leukemia. Social History: Negative for smoking and upon further questioning, the patient admits that he drinks about 3 beers and 2 hard drinks hard liquors a day. Physical Examination: Vital Signs: Height 6 feet, 1 inch, weight 195 pounds, temperature 97.2, pulse 50, respiratory rate 18, blood pressure 179/93, oxygen saturation 99. General: Awake, alert, oriented, not in distress. HEENT: Head atraumatic, normocephalic. Conjunctivae nonerythematous. Sclerae white. Mouth, no thrush or edema noted. Ears/Nose, no mass, lesion, discharge noted. Neck: Supple. No JVD, lymph nodes, bruit, thyromegaly noted. Lungs: Bilateral good equal air entry. Clear to auscultation. No rhonchi. No rales. Heart: Normal heart sounds, no murmur or gallop. Abdomen: Soft. Bowel sounds normal. No guarding, rigidity, distention. The patient does have tenderness in mid upper abdomen in epigastric and periumbilical region. There is no rebound tenderness. Extremities: No leg edema. No calf tenderness. Skin: No rash, ulcer, cellulitis. Lymphatics: No lymph node enlargement in neck, supraclavicular, infraclavicular region. Neuro: No focal neurological deficit. Chest: Unremarkable. External Genitalia: Deferred. Rectal: Deferred. Laboratory Data: White count 9.1, hemoglobin 15.6, platelets 199. Sodium 140, potassium 3.9, chloride 104, bicarb 30, BUN 14, creatinine 1.15, glucose 97. Liver function tests; AST normal at 16, ALT normal at 23, alkaline phosphatase normal at 59, total bilirubin normal at 0.4, lipase elevated at 8678, troponin 6.5. CAT scan of abdomen and pelvis with contrast shows acute on chronic pancreatitis changes. No pseudocyst, abscess or pancreatic necrosis. Chest x- ray, no acute intrathoracic changes. Impression: 1. Acute on chronic pancreatitis, alcohol related. 2. Hyperlipidemia. 3. Anxiety. 4. Insomnia. 5. Diverticulosis. 6. Benign prostatic hypertrophy. Plan: We will go ahead and admit the patient to hospital for further evaluation and management of this problem. The patient is appropriate for inpatient and is expected to spend 2 midnights in hospital. Home medications will be continued per order. We will keep him n.p.o. at this point and give him IV fluid, pain medication, nausea medication as per order. Consult admitted attorneys, Dr. Sood. We will repeat lipase level tomorrow morning, get fasting lipid profile done. DVT prophylaxis will be given per order. The patient was made aware of different possible causes of pancreatitis and in his case likely reason is his alcohol consumption and I have discussed these details with him and informed him that he should not have any alcohol at all in the future in order for him to avoid any recurrences of pancreatitis problem. Complications related to pancreatitis discussed with him as well. I will see him in the morning for followup. SAL/MODL Voice ID: [id number] MTDD
[2022-04-05] MEDS: HYDROMORPHONE HCL 1 MG/ML INJ IV PRN ×9 (00:54→22:38)
[2022-04-05] MEDS: ONDANSETRON 4 MG/2 ML VIAL IV PRN ×2 (00:55→04:35)
[2022-04-05] MEDS: NA CHLORIDE 0.9% 1,000 ML IV SCH ×2 (04:35→15:03)
[2022-04-05 07:12] LABS: Albumin 3.4 g/dL (3.4-5.0); Bilirubin Total 0.8 mg/dL (0.2-1.0); Magnesium 1.9 mg/dL (1.8-2.4); Potassium 3.7 mmol/L (3.5-5.1); Protein, Total 7.2 g/dL (6.4-8.2)
[2022-04-05] MEDS: ENOXAPARIN 40 MG/0.4 ML SQ SCH (09:43)
--- NOTE | 2022-04-05 10:19 | PN ---
Date of Progress Note: 04/04/2022 Subjective: The patient was seen this morning for followup. No new complaints or problems reported by him. His abdominal pain is more or less continuous, but pain medication seems to be helping and liliana krueger feels better when he sleeps on the right side. No nausea, vomiting overnight. Objective: Vital Signs: Reviewed. Hemodynamically, he is stable. HEENT: Unremarkable. Lungs: Clear to auscultation. Heart: Sounds normal. Abdomen: Soft. Bowel sounds normal. No guarding, rigidity, distention. Presence of tenderness in periumbilical and epigastric region, unchanged from yesterday. No rebound tenderness. Extremities: No leg edema. Laboratory Data: White count 8.8, hemoglobin 14.1, platelets 178. Sodium 141, potassium 3.6, chlori de 107, bicarb 30, BUN 11, creatinine 0.96, glucose 86. Liver function tests unremarkable. Lipase 3 596 and serum triglyceride 1.3. Impression: Acute on chronic pancreatitis, due to alcohol use. Plan: We will go ahead and continue current medications for pain and nausea medicine as needed. Con tinue IV fluid per order. We will continue to keep him n.p.o. today. Continue DVT prophylaxis with Lovenox. Ambulation was encouraged and we will continue to follow up with pipe changer, Dr. Ez orellana. We will repeat blood work tomorrow. Depending on his condition tomorrow, we will decide about starting him on clear liquid diet tomorrow. SAL/MODL Voice ID: [id number] Report ID: [id number]
[2022-04-05] MEDS: PROPRANOLOL HCL 10 MG TAB PO SCH (21:00)
[2022-04-05] MEDS ORDERED: TRAZODONE 50 MG TABLET PO SCH (21:00)
[2022-04-05] MEDS ORDERED: ESCITALOPRAM 20 MG TAB PO SCH (21:00)
--- NOTE | 2022-04-06 01:11 | PN ---
Date of Progress Note: 04/05/2022 Subjective: The patient was seen this morning for followup. He still continues to have abdominal pa in requiring narcotic pain medication every 2 hours. No vomiting. Objective: VITAL SIGNS: Reviewed. HEENT: Unremarkable. LUNGS: Bilateral good equal air entry. Clear to auscultation. HEART: Heart sounds normal. ABDOMEN: Soft, bowel sounds normal. No guarding, rigidity. No distention. Presence of tenderness in epigastric and periumbilical region, unchanged from yesterday. No rebound tenderness. EXTREMITIES: No leg edema. Laboratory Data: The patient's lab is more or less significantly better today compared to yesterday and day before yesterday. Impression: Acute on chronic pancreatitis. Plan: We will go ahead and continue IV fluid, but reduce IV fluid rate. Start the patient on clear liquid diet and Dr. Sood will be evaluating from GI Service today. We will repeat blood work tomor row. I will see him tomorrow for followup. Ambulation was encouraged. We will continue current DVT prophylaxis. SAL/MODL Voice ID: [id number] Report ID: [id number]
[2022-04-06] MEDS: HYDROMORPHONE HCL 1 MG/ML INJ IV PRN ×3 (01:44→06:35)
[2022-04-06 02:21] VITALS: BMI 25.7
[2022-04-06] MEDS: NA CHLORIDE 0.9% 1,000 ML IV SCH (03:47)
[2022-04-06 04:33] LABS: Absolute Lymphocytes (CBC) 1.1 K/uL (0.7-4.9); Hematocrit 45.8 % (39.6-49.0); MCV 95.1 fL (80-100); RBC Red Blood Cell Count 4.81 M/uL (4.33-5.43)
[2022-04-06 04:39] LABS: Albumin 3.7 g/dL (3.4-5.0); Bilirubin Total 1.1 mg/dL (0.2-1.0); Magnesium 1.9 mg/dL (1.8-2.4); Potassium 3.2 mmol/L (3.5-5.1); Protein, Total 7.9 g/dL (6.4-8.2)
[2022-04-06] MEDS ORDERED: HYDROCODONE/APAP 5/325 MG TAB PO PRN (08:40)
[2022-04-06] MEDS ORDERED: ACETAMINOPHEN 500 MG TAB PO ONE (08:40)
[2022-04-06] MEDS ORDERED: IBUPROFEN 400 MG TAB PO ONE (08:40)
--- NOTE | 2022-04-06 08:46 | RAD REPORT ---
EXAM DESCRIPTION: RAD - Chest Pa And Lat (2 Views) - 04/06/2022 7:59 am CLINICAL HISTORY: pancreatitis, leukocytosis Chest pain. COMPARISON: Chest Single View dated 04/03/2022; Chest Pa And Lat (2 Views) dated 03/02/2021; Chest Pa An d Lat (2 Views) dated 08/25/2020; Chest Pa And Lat (2 Views) dated 09/05/2018 FINDINGS: The lungs are mildly emphysematous but clear. The heart is normal in size. No displaced fr actures. IMPRESSION: Mild COPD.
[2022-04-06] MEDS: ENOXAPARIN 40 MG/0.4 ML SQ SCH ×2 (09:00→10:04)
[2022-04-06] MEDS: PROPRANOLOL HCL 10 MG TAB PO SCH (09:03)
[2022-04-06 10:59] VITALS: O2SAT 96
[2022-04-06 11:58] LABS: Urine Blood 1+ (Negative); Urine Clarity Clear (Clear); Urine Color Yellow (Yellow); Urine Glucose Negative (Negative); Urine Protein Negative (Negative); Urine Urobilinogen 0.2 mg/dL (0.2-1.0)
[2022-04-06 12:17] LABS: Urine Mucus 2+ /HPF (None Seen)
[2022-04-06 12:47] LABS: Urine Bilirubin Negative (Negative)
--- NOTE | 2022-04-06 12:56 | RAD REPORT ---
EXAM DESCRIPTION: CT - Abdomen Pelvis Wo Contrast - 04/06/2022 12:41 pm CLINICAL HISTORY: Elevated WBC and Pancreatitis COMPARISON: Abdomen Pelvis W Contrast dated 04/03/2022 TECHNIQUE: Axial [address] imaging of the abdomen and pelvis was performed without IV contrast. No IV contrast was given because of allergy, abnormal renal function, patient refusal or physician re quest. Oral contrast was given. All CT scans are performed using dose optimization technique as appropriate and may include automated exposure control or mA/KV adjustment according to patient size. FINDINGS: No suspicious findings in the lung bases. The liver and spleen show no new findings since April 03 imaging. No biliary tree dilatation. Gallbla dder is mostly contracted. No biliary tree dilatation. Peripancreatic edema and stranding around the head and uncinate process again identified. Calcificat ions in the body and tail of the pancreas are again noted. No pancreatic solid or cystic mass has dev eloped. The peripancreatic edema and stranding pattern has not change from April 03. No hydronephrosis or suspicious renal mass. Multiple bilateral renal cysts again noted. No significan t adrenal finding. Isodense renal masses and pyelonephritis cannot be excluded in the absence of IV c ontrast. The urinary bladder is without significant finding. No dilated bowel loops or bowel wall thickening. Appendix is normal. No acute bowel process has devel oped. No free air, free fluid or pneumatosis. No mass or bulky lymphadenopathy. Left inguinal hernia repair changes are again noted. Air in the subcutaneous fatty tissues of the abdomen is presumed to b e from medication injection. Disc and bone degenerative changes are present. No acute bone process identifiable. IMPRESSION: Mild acute pancreatitis superimposed on chronic pancreatitis changes. Pancreatitis findings are stable from April 03. Full assessment is limited is the absence of IV contrast.
[2022-04-06 13:02] VITALS: BP 137/74; TEMP 98.8
--- NOTE | 2022-04-08 10:47 | DS ---
Date of Discharge: 04/06/2022 Disposition: Discharged to go home. Physical Examination: HEENT: Unremarkable. Lungs: Clear to auscultation. Heart: Sounds normal. Abdomen: Soft. Bowel sounds normal. No guarding, rigidity, distention. Mild tenderness in epigast ravi and periumbilical region, which is better compared to last couple of days. No rebound tenderness . Bowel sounds normoactive. No distention. Extremities: No leg edema. Laboratory Data: Upon admission; white count 9.1, hemoglobin 15.6, platelets 199. Today; white coun t 13.8, hemoglobin 16.1, platelets 202. Upon admission; sodium 140, potassium 3.9, chloride 104, bic arb 30, BUN 14, creatinine 1.15, glucose 97. Liver function tests unremarkable. Lipase 8678, which was the highest lipase for this admission and we followed lipase on a daily basis and last lipase tod ay was normal at 212. Today; sodium 135, potassium 3.2, chloride 98, bicarb 28, BUN 5, creatinine 0. 77, glucose 109. Urinalysis unremarkable. Chest x-ray done today shows changes of COPD, but no pneu monia. CAT scan of abdomen upon admission and today shows evidence of acute on chronic pancreatitis. No evidence of any fluid collection around the pancreas. No complications related to pancreatitis noted. Discharge Medications And Instructions: 1.Continue all prior home medications. 2.Follow up at my office next week. Call office for appointment. 3.Take Tylenol 500 mg 1 tablet and Motrin 200 mg 2 tablets by mouth 4 times a day as needed for pain . 4.Take hydrocodone 5 mg 3 times a day as needed for more severe pain. 5.Do not drink alcohol. 6.Prescription for 15 tablets of hydrocodone was sent to the patient's pharmacy. Hospital Course: A 67-year-old very pleasant male patient, admitted to the hospital with abdominal p ain and nausea. Please see dictated H and P for more information. The patient has longstanding hist ory of alcohol use and says that about couple of months ago he had diarrhea problem. His stool test was negative, but at that time he quit using alcohol for a while and diarrhea got better and started using alcohol again and now he came in with 2-3 weeks history of increasing abdominal pain and nausea . After he came into ER, he was evaluated and admitted to the hospital with acute on chronic pancrea titis as noted per CAT scan finding. The patient was kept n.p.o. initially and IV fluid and IV pain medication were started. Nausea medicine was given. DVT prophylaxis was given with Lovenox. Once h is lipase started to come down, we started him on clear liquid diet and slowly advanced his diet. [place] stroenterologist reporting consultant was Dr. Sood who was requested to see the patient for consultation and it was requested at the time of admission, but unfortunately we believe that he has not had a chance to evaluate the patient. The patient's condition meanwhile has improved and as he tolerated diet very w ell, we advanced his diet and medically he was stable. His white count had gone up slightly today on day of discharge, but I would have to believe that this is stress-induced. There is no evidence of any definite infection anywhere that we can find and the patient is medically stable for discharge. I did college and career counselor the patient in detail about importance of not to drink any alcohol at all in the future and he understands and agrees with that recommendation. Final Diagnoses: 1.Acute on chronic pancreatitis, alcohol related. 2.Hyperlipidemia. 3.Anxiety. 4.Insomnia. 5.Diverticulosis. 6.Benign prostatic hypertrophy. SAL/MODL Voice ID: [id number] Report ID: [id number]
== END 2022-04-06 16:15 | disposition home or self-care (01) | DRG 440 ==
LOC: ER 16:52 → ERHOLD 20:34 → 2ND 04-04 12:08
PROVIDERS: ADMIT Internal Medicine; ATTEND Internal Medicine
DX: K85.20 Alcohol induced acute pancreatitis without necrosis or infection (principal); K86.0 Alcohol-induced chronic pancreatitis; E78.5 Hyperlipidemia, unspecified; F41.9 Anxiety disorder, unspecified; G47.00 Insomnia, unspecified; K57.90 Diverticulosis of intestine, part unspecified, without perforation or abscess without bleeding; N40.0 Benign prostatic hyperplasia without lower urinary tract symptoms; Z20.822 Contact with and (suspected) exposure to COVID-19
CPT/HCPCS: 36415; 71045; 71046; 74176; 74177; 80053; 80061; 81001; 81003; 83690; 83735; 84484; 85025; 87811; 93005; 99285; J1170; J1650; J2405; J7030; Q9967

== ENCOUNTER 2022-06-12 08:32 | Day surgery (SDC) | payer OTHER ==
[2022-06-08 13:40] LABS: SARS-CoV-2 Antigen Rapid Res Negative (Negative)
[2022-06-08 13:43] LABS: Absolute Lymphocytes (CBC) 1.7 K/uL (0.7-4.9); Hematocrit 42.4 % (39.6-49.0); Lymphocytes % 21.2 % (15.3-44.8); MCV 96.5 fL (80-100); MPV 8.2 fL (7.6-11.3); RBC Red Blood Cell Count 4.39 M/uL (4.33-5.43)
[2022-06-08 13:55] LABS: Urine Bilirubin NEGATIVE (Negative); Urine Blood Trace (Negative); Urine Clarity Clear (Clear); Urine Color Light-Yellow (Yellow); Urine Glucose NEGATIVE (Negative); Urine Mucus Slight /HPF (None Seen); Urine Protein NEGATIVE (Negative); Urine RBC <5 /HPF (None Seen); Urine Urobilinogen Normal (Normal); Urine pH 5.5 (5.0-7.0)
[2022-06-08 14:03] LABS: Potassium 4.1 mmol/L (3.5-5.1)
[2022-06-08 14:33] LABS: Protime INR 1.03
[2022-06-12] MEDS ORDERED: CEFAZOLIN SODIUM 2 GM/VIAL ONE (08:52)
[2022-06-12] MEDS ORDERED: Ringers Lactate 1,000 ML IV ONE (08:52)
[2022-06-12] MEDS ORDERED: propofoL 200 MG/20 ML VIAL IV ONE (09:13)
[2022-06-12] MEDS ORDERED: FENTANYL CITR 100 MCG/2 ML ONE (09:13)
[2022-06-12] MEDS ORDERED: ONDANSETRON 4 MG/2 ML VIAL ONE (09:14)
[2022-06-12] MEDS ORDERED: LIDOCAINE 1% MPF 5 ML VIAL ONE (09:14)
[2022-06-12] MEDS ORDERED: MIDAZOLAM HCL 2 MG/2 ML INJ ONE (09:14)
[2022-06-12] MEDS ORDERED: BACITRACIN OINTMENT 14 GM TUBE TOP ONE (09:15)
[2022-06-12] MEDS ORDERED: BUPIVACAINE 0.25% PF 10 ML VIAL ONE (09:15)
[2022-06-12] MEDS ORDERED: dexAMETHasone 4 MG/ML VIAL ONE (10:04)
[2022-06-12] MEDS ORDERED: EPHEDRINE SULF 50 MG/ML VIAL ONE (10:12)
[2022-06-12] MEDS ORDERED: KETOROLAC 30 MG/ML INJ ONE (11:22)
[2022-06-12] MEDS: FENTANYL CITR 100 MCG/2 ML ONE ×2 (11:45→11:50)
[2022-06-12] MEDS ORDERED: CODEINE 30MG/APAP 300MG TAB PO PRN (12:02)
[2022-06-12] MEDS: HYDROMORPHONE HCL 1 MG/ML INJ ONE ×2 (12:02→12:07)
[2022-06-12] MEDS ORDERED: HYDROMORPHONE HCL 1 MG/ML INJ ONE (12:18)
[2022-06-12 12:33] VITALS: O2SAT 97
[2022-06-12] MEDS ORDERED: HYDROCODONE/APAP 7.5/325 MG TAB ONE (13:11)
[2022-06-12 14:16] VITALS: BP 137/71; TEMP 96.9
--- NOTE | 2022-06-12 14:16 | OP ---
Surgeon: XIMENA HUNT Preoperative Diagnoses: 1.Painful/tender left epididymis. 2.Left spermatocele. Postoperative Diagnoses: 1.Painful/tender left epididymis. 2.Left spermatocele. Principle Procedure: Scrotal exploration and left epididymectomy. Indication For Procedure: Mr. Humphrey presented to the [facility] with a history of vasectomy and a chronically painful and tender left epididymal region with a cyst observed on the ultrasound. He unfortunately had persistent pain despite efforts at conservative medical management and was counsele d on the potential pain relief associated with left epididymectomy. He elected to proceed after some time. Procedure In Detail: The patient was consented in the preoperative holding area before being transfe rred to the operative suite where general anesthesia was induced. He was given Ancef 2 g IV antimicr obial prophylaxis and Pneumoboots were provided for DVT prophylaxis. He was supine on the procedure table, and his genitalia was shaved, prepped with Betadine, and draped in standard fashion. 0.25% Ma rcaine was given subcutaneously in the region of a Aneesh's line incision approximately 1-1.5 cm in l ength in the left hemiscrotum anteriorly near the midline. This was incised, and then, deepened thro ugh the subcutaneous tissues and dartos layers using Bovie electrocautery. The tunica vaginalis argelia etal layer was encountered and was subsequently freed from the surrounding dartos attachments circumf erentially. The testis and its surrounding tunics were delivered into the extrascrotal space, and th en, I entered the tunica vaginalis anteriorly and divided it in an anterior-posterior fashion. Minim al hydrocele fluid was encountered. The tunics were largely excised as there was no significant hydr ocele, and then, the testis itself and the epididymal region was surveyed. Palpation of the epididym is did not reveal any specific area of a cyst that could be independently targeted with definitive re lief of his pain. As a result, I elected to remove the entirety of the epididymis. I began by separ ating the epididymis from the lateral surfaces of the testis, and then, identifying the vas deferens and the vasal artery and it also from the epididymis using a vessel loop to amita it and ke ep it laterally. I then completely excised the epididymis from the mid portion of the testis and ext ended to the epididymal head region ligating any tributaries with a 4-0 PDS suture and then over-sewi ng the anterior insertion into the rete testis using 4-0 PDS in a running fashion. With the epididym is freed anteriorly and in the mid lateral portion of the testis, but only attached in the region of the inferior portion of the testis near the vas insertion, I then carefully this and used 4 -0 PDS to ligate the ductal tributaries to the vas deferens. Once this was done, I then divided the epididymis and sent it for pathologic analysis. The remainder of the testicular surface was surveyed for any bleeding and pinpoint fulguration was performed where necessary. The testis remained viable with evident reasonable blood flow via the vasal artery and no sign of duskiness or ischemia. Irrig ation was performed, and then, the border of the parietal layer of tunica vaginalis was fulgurated to prevent any bleeding or fluid accumulation due to lymphatics. Then, the testis was delivered back i nto the intrascrotal space and irrigated in that location. The dartos layers were then closed in a r unning fashion using 3-0 Vicryl suture, and the skin was closed using 4-0 chromic dipped in bacitraci n. A fluff gauze and scrotal support were applied, and the patient was awakened from general anesthe ko. He was then transferred to a stretcher, and then, transferred to the recovery room in good cond ition. Complications: None. Discharge Disposition: He should follow up in the Urology Clinic within the next 2-4 weeks for inter sendy assessment and review of the pathologic analysis. GISEL/FRED Voice ID: [id number] Report ID: [id number]
== END 2022-06-12 13:45 | disposition home or self-care (01) ==
LOC: OR 08:32
PROVIDERS: ATTEND Urology
PROC: 0VTK0ZZ Resection of Left Epididymis, Open Approach (ICD-10-PCS; principal; 2022-06-12 10:00)
DX: N43.40 Spermatocele of epididymis, unspecified (principal); N45.1 Epididymitis; Z20.822 Contact with and (suspected) exposure to COVID-19
CPT/HCPCS: 54860; 85025; 81001; 80048; 36415; 88108; 85610; 88304; 87811; J2704; J1100; J2001; J2250; J3010 ×2; J1170 ×2; J7120; J2405